=== PATIENT | female | born 1935 | race Caucasian/White ===

== ENCOUNTER → 2016-09-22 | Outpatient (CLI) | payer MEDICARE, OTHER ==
[~2016-09-22] MED LIST: AMOXICILLIN 8751 TAB PO; ASPIRIN 81M81 MG/TA2 PO; ATIVAN 0.50.5 MG/TAB PO; B-12 500 MCG PO; CALCIUM 600 PLU1 TAB PO; DESYREL 100MG100 MG PO; FLAGYL500 MG PO; FOLIC ACID 11 MG/TA1 PO; LASIX 20MG TABL20 MG PO; LEVAQUIN 5500 MG/TA1 PO; LEXAPRO 5MG5 MG PO; MAG-OX 400400 MG/TAB PO; MICARDIS80 MG PO; MULTI VITAMINS1 TAB PO; OMEGA-3 1000 MG1 CAP PO; PAXIL 20MG20 MG PO; THIAMINE 1100 MG/TAB PO; ZOCOR 20MG20 MG PO
[2016-09-22 20:34] LABS: BASO # 0.1 (0.0-0.2); GRAN # 3.4 (1.4-6.5); GRAN % 54.5 % (42.2-75.2); HEMATOCRIT 40.1 % (37.0-47.0); HEMOGLOBIN 13.6 g/dl (12.5-16.0); LYMPH # 2.2 (1.2-3.4); LYMPH % 35.5 % (20.0-51.0); MEAN CELL VOLUME 98 fl (80.0-100.0); MEAN CORPUSCULAR HEMOGLOBIN 33 pg (27.0-31.0); MEAN CORPUSCULAR HGB CONC 34 g/dl (33.0-37.0); MEAN PLATELET VOLUME 11.4 fl (7.4-10.4); MONO # 0.6 (0.1-0.6); MONO % 8.8 % (1.7-9.3); PLATELET COUNT 223 K/mm3 (130-400); RED BLOOD COUNT 4.09 M/mm3 (4.10-5.30); REDCELL DISTRIBUTION WIDTH-CV 15.9 % (11.5-14.5); WHITE BLOOD COUNT 6.3 K/mm3 (4.8-10.8)
[2016-09-22 20:54] LABS: ADJUSTED CALCIUM 9.4 mg/dL (8.4-10.2); ALBUMIN 3.7 gm/dL (3.5-5.0); BILIRUBIN,TOTAL 0.9 mg/dL (0.0-1.0); CALCIUM 9.2 mg/dL (8.4-10.2); CREATININE, serum 0.82 mg/dL (0.52-1.25); MAGNESIUM 1.8 mg/dL (1.6-2.3); POTASSIUM 4.4 mmol/L (3.4-5.0); TOTAL PROTEIN 7.2 gm/dL (6.4-8.2)
[2016-09-22 21:24] LABS: THYROID STIMULATING HORMONE 3.01 uIU/mL (0.465-4.680)
== END ==
LOC: ZCOL.LAB 18:56
PROVIDERS: Nurse Practitioner Family
DX: R63.0 Anorexia (principal); R11.2 Nausea with vomiting, unspecified; R63.4 Abnormal weight loss

== ENCOUNTER 2016-09-25 14:30 | Emergency (ER) | payer MEDICARE, OTHER ==
[~2016-09-25] VITALS: Ht 157.5 cm; Wt 56.8 kg
[~2016-09-25 14:30] MED LIST changes: -AMOXICILLIN 8751 TAB PO; -ASPIRIN 81M81 MG/TA2 PO; -CALCIUM 600 PLU1 TAB PO; -DESYREL 100MG100 MG PO; -FLAGYL500 MG PO; -LASIX 20MG TABL20 MG PO; -LEVAQUIN 5500 MG/TA1 PO; -LEXAPRO 5MG5 MG PO; -OMEGA-3 1000 MG1 CAP PO
[2016-09-25 14:42] VITALS: TEMP 98.5
[2016-09-25 18:23] LABS: BASO % 0.3 % (0.0-2.0); EOS % 0.1 % (0-4.0); GRAN # 6.3 (1.4-6.5); HEMATOCRIT 40.6 % (37.0-47.0); HEMOGLOBIN 13.8 g/dl (12.5-16.0); LYMPH # 2.3 (1.2-3.4); LYMPH % 24.8 % (20.0-51.0); MEAN CELL VOLUME 96 fl (80.0-100.0); MEAN CORPUSCULAR HEMOGLOBIN 33 pg (27.0-31.0); MEAN CORPUSCULAR HGB CONC 34 g/dl (33.0-37.0); MEAN PLATELET VOLUME 11.1 fl (7.4-10.4); MONO # 0.7 (0.1-0.6); MONO % 7.5 % (1.7-9.3); PLATELET COUNT 188 K/mm3 (130-400); RED BLOOD COUNT 4.21 M/mm3 (4.10-5.30); REDCELL DISTRIBUTION WIDTH-CV 15.7 % (11.5-14.5); WHITE BLOOD COUNT 9.5 K/mm3 (4.8-10.8)
[2016-09-25 18:35] LABS: PH 6 (5-8); SQUAMOUS EPITHELIAL 0-2 /hpf; URINE APPEARANCE Clear; URINE BACTERIA Rare /hpf; URINE BILIRUBIN Negative (NEGATIVE); URINE BLOOD Negative (NEGATIVE); URINE COLOR Yellow; URINE GLUCOSE Negative (NEGATIVE); URINE KETONE Negative (NEGATIVE); URINE RBC 0-2 /hpf; URINE UROBILINOGEN Negative (NEGATIVE); URINE WBC 0-2 /hpf
[2016-09-25 18:40] LABS: ADJUSTED CALCIUM 9.2 mg/dL (8.4-10.2); ALANINE AMINOTRANSFERASE 219 U/L (9-52); ALBUMIN 4.1 gm/dL (3.5-5.0); ALKALINE PHOSPHATASE 347 U/L (50-136); ANION GAP 18 mmol/L (7-16); BILIRUBIN,TOTAL 1.8 mg/dL (0.0-1.0); BLOOD UREA NITROGEN 10 mg/dL (7-17); CALCIUM 9.3 mg/dL (8.4-10.2); CARBON DIOXIDE 22 mmol/L (22-30); CHLORIDE 96 mmol/L (98-107); CREATININE, serum 0.71 mg/dL (0.52-1.25); GLUCOSE 109 mg/dL (74-106); POTASSIUM 4.3 mmol/L (3.4-5.0); SODIUM 136 mmol/L (137-145)
[2016-09-25 18:47] LABS: ACETAMINOPHEN < 10 ug/mL (10-30); SALICYLATE < 1.0 mg/dL
[2016-09-25 19:38] VITALS: BP 162/79; PULSE 102
== END 2016-09-25 19:48 | disposition home or self-care (01) ==
LOC: COL.ER 14:30
PROVIDERS: Emergency Medicine
DX: R53.81 Other malaise (principal); G47.00 Insomnia, unspecified; I10 Essential (primary) hypertension
CPT/HCPCS: J7040

== ENCOUNTER → 2016-09-28 | Outpatient (CLI) | payer MEDICARE, OTHER ==
[~2016-09-28] MED LIST changes: +AMOXICILLIN 8751 TAB PO; +ASPIRIN 81M81 MG/TA2 PO; +CALCIUM 600 PLU1 TAB PO; +DESYREL 100MG100 MG PO; +FLAGYL500 MG PO; +LASIX 20MG TABL20 MG PO; +LEVAQUIN 5500 MG/TA1 PO; +LEXAPRO 5MG5 MG PO; +OMEGA-3 1000 MG1 CAP PO
== END ==
LOC: COL.RAD 09:31
DX: R74.8 Abnormal levels of other serum enzymes (principal)

== ENCOUNTER 2016-11-13 10:37 | Emergency (ER) | payer MEDICARE, OTHER ==
[~2016-11-13] VITALS: Ht 157.5 cm; Wt 56.8 kg
[~2016-11-13 10:37] MED LIST changes: -AMOXICILLIN 8751 TAB PO; -ASPIRIN 81M81 MG/TA2 PO; -CALCIUM 600 PLU1 TAB PO; -DESYREL 100MG100 MG PO; -FLAGYL500 MG PO; -LASIX 20MG TABL20 MG PO; -LEVAQUIN 5500 MG/TA1 PO; -LEXAPRO 5MG5 MG PO; -OMEGA-3 1000 MG1 CAP PO
[2016-11-13 10:41] VITALS: TEMP 98.2
[2016-11-13 11:38] LABS: BASO # 0.1 (0.0-0.2); BASO % 0.4 % (0.0-2.0); EOS % 0.1 % (0-4.0); GRAN # 8.8 (1.4-6.5); GRAN % 76.5 % (42.2-75.2); HEMATOCRIT 39.6 % (37.0-47.0); HEMOGLOBIN 13.7 g/dl (12.5-16.0); LYMPH # 1.5 (1.2-3.4); LYMPH % 13.3 % (20.0-51.0); MEAN CELL VOLUME 99 fl (80.0-100.0); MEAN CORPUSCULAR HEMOGLOBIN 34 pg (27.0-31.0); MEAN CORPUSCULAR HGB CONC 35 g/dl (33.0-37.0); MEAN PLATELET VOLUME 10.9 fl (7.4-10.4); MONO # 1.1 (0.1-0.6); MONO % 9.2 % (1.7-9.3); PLATELET COUNT 171 K/mm3 (130-400); RED BLOOD COUNT 4.02 M/mm3 (4.10-5.30); REDCELL DISTRIBUTION WIDTH-CV 12.1 % (11.5-14.5); WHITE BLOOD COUNT 11.5 K/mm3 (4.8-10.8)
[2016-11-13 11:50] LABS: ADJUSTED CALCIUM 9.3 mg/dL (8.4-10.2); ALBUMIN 3.7 gm/dL (3.5-5.0); BILIRUBIN,TOTAL 1.7 mg/dL (0.0-1.0); C-REACTIVE PROTEIN 2.6 mg/dL (0.0-0.9); CALCIUM 9.1 mg/dL (8.4-10.2); CREATININE, serum 0.59 mg/dL (0.52-1.25); TOTAL PROTEIN 7.1 gm/dL (6.4-8.2)
[2016-11-13] MEDS ORDERED: AMOXICILLIN 8751 TAB PO (13:39)
[2016-11-13 14:09] VITALS: BP 117/79; PULSE 107
== END 2016-11-13 14:11 | disposition home or self-care (01) ==
LOC: COL.ER 10:37
PROVIDERS: Family Medicine
DX: J20.9 Acute bronchitis, unspecified (principal); R63.0 Anorexia; I10 Essential (primary) hypertension; F32.9 Major depressive disorder, single episode, unspecified; Z95.0 Presence of cardiac pacemaker
CPT/HCPCS: J2930; Q9967

== ENCOUNTER 2017-02-18 09:37 | Inpatient (IN) | payer MEDICARE, OTHER ==
[~2017-02-18] VITALS: Ht 157.5 cm; Wt 64.3 kg
[~2017-02-18 09:37] MED LIST changes: +AMOXICILLIN 8751 TAB PO
[2017-02-18] MEDS ORDERED: CALCIUM 600 PLU1 TAB PO (10:07)
[2017-02-18] MEDS ORDERED: MULTI VITAMINS1 TAB PO (10:08)
[2017-02-18] MEDS ORDERED: OMEGA-3 1000 MG1 CAP PO (10:08)
[2017-02-18] MEDS ORDERED: LASIX 20MG TABL20 MG PO (10:09)
[2017-02-18] MEDS ORDERED: LEXAPRO 5MG5 MG PO (10:09)
[2017-02-18] MEDS ORDERED: DESYREL 100MG100 MG PO (10:15)
[2017-02-18 10:19] LABS: BASO # 0.1 (0.0-0.2); BASO % 0.3 % (0.0-2.0); EOS # 0.1 (0.0-0.7); EOS % 0.5 % (0-4.0); GRAN # 14.1 (1.4-6.5); GRAN % 83.8 % (42.2-75.2); HEMATOCRIT 38.1 % (37.0-47.0); HEMOGLOBIN 12.7 g/dl (12.5-16.0); LYMPH % 6.1 % (20.0-51.0); MEAN CELL VOLUME 95 fl (80.0-100.0); MEAN CORPUSCULAR HEMOGLOBIN 32 pg (27.0-31.0); MEAN CORPUSCULAR HGB CONC 33 g/dl (33.0-37.0); MEAN PLATELET VOLUME 9.7 fl (7.4-10.4); MONO # 1.4 (0.1-0.6); MONO % 8.6 % (1.7-9.3); PLATELET COUNT 237 K/mm3 (130-400); REDCELL DISTRIBUTION WIDTH-CV 11.7 % (11.5-14.5); WHITE BLOOD COUNT 16.8 K/mm3 (4.8-10.8)
[2017-02-18 10:32] LABS: ADJUSTED CALCIUM 9.1 mg/dL (8.4-10.2); ALBUMIN 3.4 gm/dL (3.5-5.0); BILIRUBIN,TOTAL 0.6 mg/dL (0.0-1.0); CALCIUM 8.6 mg/dL (8.4-10.2); CREATININE, serum 0.84 mg/dL (0.52-1.25); POTASSIUM 3.6 mmol/L (3.4-5.0); TOTAL PROTEIN 6.6 gm/dL (6.4-8.2)
[2017-02-18 11:05] LABS: C-REACTIVE PROTEIN 29.4 mg/dL (0.0-0.9)
[2017-02-18 11:21] LABS: PH 6 (5-8); SQUAMOUS EPITHELIAL 0-2 /hpf; URINE APPEARANCE Clear; URINE BACTERIA None Seen /hpf; URINE BILIRUBIN Negative (NEGATIVE); URINE BLOOD Negative (NEGATIVE); URINE COLOR Yellow; URINE GLUCOSE 1+ (NEGATIVE); URINE KETONE Negative (NEGATIVE); URINE RBC 0-2 /hpf; URINE UROBILINOGEN Negative (NEGATIVE); URINE WBC 0-2 /hpf
[2017-02-18] MEDS ORDERED: ASPIRIN 81M81 MG/TA2 PO (11:51)
[2017-02-18 12:23] VITALS: BP 125/51; PULSE 91; TEMP 98.3
[2017-02-18 14:46] VITALS: BP 140/47; PULSE 86; TEMP 98.2
[2017-02-18 17:55] VITALS: BP 116/45; PULSE 87; TEMP 98.3
[2017-02-18 21:36] VITALS: BP 131/46; PULSE 81; TEMP 98.1
[2017-02-19 01:19] VITALS: BP 111/48; PULSE 73; TEMP 98.3
[2017-02-19 05:23] VITALS: BP 124/47; PULSE 70; TEMP 97.9
[2017-02-19 06:06] LABS: BASO % 0.3 % (0.0-2.0); EOS # 0.2 (0.0-0.7); GRAN # 8.3 (1.4-6.5); GRAN % 71.6 % (42.2-75.2); HEMATOCRIT 34.3 % (37.0-47.0); HEMOGLOBIN 11.2 g/dl (12.5-16.0); LYMPH # 1.8 (1.2-3.4); LYMPH % 15.7 % (20.0-51.0); MEAN CELL VOLUME 97 fl (80.0-100.0); MEAN CORPUSCULAR HEMOGLOBIN 32 pg (27.0-31.0); MEAN CORPUSCULAR HGB CONC 33 g/dl (33.0-37.0); MEAN PLATELET VOLUME 9.4 fl (7.4-10.4); MONO # 1.2 (0.1-0.6); MONO % 9.9 % (1.7-9.3); PLATELET COUNT 230 K/mm3 (130-400); RED BLOOD COUNT 3.53 M/mm3 (4.10-5.30); REDCELL DISTRIBUTION WIDTH-CV 11.9 % (11.5-14.5); WHITE BLOOD COUNT 11.6 K/mm3 (4.8-10.8)
[2017-02-19 06:17] LABS: CALCIUM 7.8 mg/dL (8.4-10.2); CREATININE, serum 0.65 mg/dL (0.52-1.25); POTASSIUM 3.5 mmol/L (3.4-5.0)
[2017-02-19 07:45] VITALS: BP 134/57; PULSE 74; TEMP 97.6
[2017-02-19 12:10] VITALS: BP 152/57; PULSE 84; TEMP 98.3
[2017-02-19 16:30] VITALS: BP 122/55; PULSE 73; TEMP 98.2
[2017-02-19 21:21] VITALS: BP 142/55; PULSE 71; TEMP 98.1
[2017-02-20 04:55] VITALS: BP 136/66; PULSE 76; TEMP 97.9
[2017-02-20 06:04] VITALS: BP 146/58; PULSE 65; TEMP 98.2
[2017-02-20 07:26] LABS: BASO % 0.3 % (0.0-2.0); EOS # 0.1 (0.0-0.7); EOS % 1.4 % (0-4.0); GRAN # 6.1 (1.4-6.5); GRAN % 67.7 % (42.2-75.2); LYMPH # 1.8 (1.2-3.4); MEAN CELL VOLUME 96 fl (80.0-100.0); MEAN CORPUSCULAR HGB CONC 32 g/dl (33.0-37.0); MEAN PLATELET VOLUME 9.1 fl (7.4-10.4); MONO # 0.9 (0.1-0.6); PLATELET COUNT 259 K/mm3 (130-400); REDCELL DISTRIBUTION WIDTH-CV 11.9 % (11.5-14.5)
[2017-02-20 07:27] LABS: HEMATOCRIT 33.7 % (37.0-47.0); HEMOGLOBIN 10.9 g/dl (12.5-16.0); MEAN CORPUSCULAR HEMOGLOBIN 31 pg (27.0-31.0)
[2017-02-20 07:38] LABS: CALCIUM 7.9 mg/dL (8.4-10.2); CREATININE, serum 0.6 mg/dL (0.52-1.25); POTASSIUM 3.4 mmol/L (3.4-5.0)
[2017-02-20 09:30] VITALS: BP 155/61; PULSE 60; TEMP 98.1
[2017-02-20 13:55] VITALS: BP 136/63; PULSE 67; TEMP 99.1
[2017-02-20 18:00] VITALS: BP 146/64; PULSE 64; TEMP 98.1
[2017-02-20 22:51] VITALS: BP 141/63; PULSE 78; TEMP 98.7
[2017-02-21 05:29] VITALS: BP 157/66; PULSE 71; TEMP 98.6
[2017-02-21 09:52] VITALS: BP 157/63; PULSE 67; TEMP 98.2
[2017-02-21] MEDS ORDERED: LEVAQUIN 5500 MG/TA1 PO (13:06)
[2017-02-21] MEDS ORDERED: FLAGYL500 MG PO (13:07)
[2017-02-21 13:22] VITALS: BP 164/66; PULSE 76; TEMP 98.1
== END 2017-02-21 13:40 | disposition home or self-care (01) | DRG 392 ==
LOC: COL.ER 09:37 → SURG 11:38
PROVIDERS: Emergency Medicine; Family Medicine
DX: K57.20 Diverticulitis of large intestine with perforation and abscess without bleeding (principal); I10 Essential (primary) hypertension; E78.5 Hyperlipidemia, unspecified; G47.00 Insomnia, unspecified; F32.9 Major depressive disorder, single episode, unspecified; Z87.891 Personal history of nicotine dependence
CPT/HCPCS: 99222-AI; 99232-AI; 99239; J2543; J7030; J7040; J7050; Q9967

== ENCOUNTER 2018-03-24 15:33 | Observation (INO) | payer MEDICARE, OTHER ==
[~2018-03-24] VITALS: Ht 154.9 cm; Wt 61.2 kg
[~2018-03-24 15:33] MED LIST changes: +ASPIRIN 81M81 MG/TA2 PO; +CALCIUM 600 PLU1 TAB PO; +CEFTIN 250250 MG/TAB PO; +CIPRO 500MG TA500 MG PO; +DESYREL 100MG100 MG PO; +DIPHEDRYL12.5 MG/4; +FLAGYL500 MG PO; +LASIX 20MG TABL20 MG PO; +LEVAQUIN 5500 MG/TA1 PO; +LEXAPRO 5MG5 MG PO; +NATURAL MAGNES200 MG PO; +NORCO 325 MG-51 TAB PO; +OMEGA-3 1000 MG1 CAP PO; +VITAMIN B COMPL1 SGL PO
[2018-03-24 15:56] VITALS: BP 174/78; PULSE 79
[2018-03-24 16:15] LABS: BASO % 0.3 % (0.0-2.0); GRAN # 10.2 (1.4-6.5); GRAN % 82.8 % (42.2-75.2); HEMATOCRIT 38.9 % (37.0-47.0); HEMOGLOBIN 13.3 g/dl (12.5-16.0); LYMPH # 1.5 (1.2-3.4); LYMPH % 12.5 % (20.0-51.0); MEAN CELL VOLUME 93 fl (80.0-100.0); MEAN CORPUSCULAR HEMOGLOBIN 32 pg (27.0-31.0); MEAN CORPUSCULAR HGB CONC 34 g/dl (33.0-37.0); MEAN PLATELET VOLUME 9.5 fl (7.4-10.4); MONO # 0.5 (0.1-0.6); MONO % 4.1 % (1.7-9.3); PLATELET COUNT 205 K/mm3 (130-400); RED BLOOD COUNT 4.17 M/mm3 (4.10-5.30); REDCELL DISTRIBUTION WIDTH-CV 12.5 % (11.5-14.5)
[2018-03-24 16:29] LABS: ALANINE AMINOTRANSFERASE 72 U/L (9-52); ALBUMIN 3.8 gm/dL (3.5-5.0); ALKALINE PHOSPHATASE 175 U/L (50-136); ANION GAP 14 mmol/L (7-16); AST,SGOT 183 U/L (15-37); BILIRUBIN,TOTAL 0.4 mg/dL (0.0-1.0); BLOOD UREA NITROGEN 14 mg/dL (7-17); CARBON DIOXIDE 21 mmol/L (22-30); CHLORIDE 96 mmol/L (98-107); CREATININE, serum 0.61 mg/dL (0.52-1.25); GLUCOSE 141 mg/dL (74-106); SODIUM 131 mmol/L (137-145); TOTAL PROTEIN 7.5 gm/dL (6.4-8.2)
[2018-03-24 16:31] LABS: C-REACTIVE PROTEIN < 0.5 mg/dL (0.0-0.9)
[2018-03-24 16:38] LABS: TROPONIN-I < 0.012 ng/mL (0.000-0.034)
[2018-03-24 17:34] LABS: COLLECTION METHOD CLEAN CATCH
[2018-03-24 17:53] LABS: HYALINE CAST >12 /lpf; MUCOUS Present /lpf; PH 5 (5-8); SQUAMOUS EPITHELIAL 0-2 /hpf; URINE APPEARANCE Clear; URINE BACTERIA Rare /hpf; URINE BILIRUBIN Negative (NEGATIVE); URINE BLOOD Negative (NEGATIVE); URINE COLOR Yellow; URINE GLUCOSE 1+ (NEGATIVE); URINE KETONE 1+ (NEGATIVE); URINE LEUKOCYTE ESTERASE Negative (NEGATIVE); URINE NITRATE Negative (NEGATIVE); URINE PROTEIN(semi-quant) 1+ (NEGATIVE); URINE RBC 0-2 /hpf; URINE UROBILINOGEN Negative (NEGATIVE)
[2018-03-24] MEDS ORDERED: REMERON 15M15 MG/TA1 PO (21:52)
[2018-03-24 23:31] VITALS: BP 159/61; PULSE 86; TEMP 98.1
[2018-03-25 03:38] VITALS: BP 165/63; PULSE 81; TEMP 98.5
[2018-03-25 07:25] LABS: BASO % 0.4 % (0.0-2.0); EOS % 0.3 % (0-4.0); GRAN # 3.3 (1.4-6.5); GRAN % 44.8 % (42.2-75.2); LYMPH # 3.3 (1.2-3.4); LYMPH % 44.8 % (20.0-51.0); MEAN CELL VOLUME 96 fl (80.0-100.0); MEAN CORPUSCULAR HGB CONC 32 g/dl (33.0-37.0); MEAN PLATELET VOLUME 10.3 fl (7.4-10.4); MONO # 0.7 (0.1-0.6); MONO % 9.6 % (1.7-9.3); PLATELET COUNT 168 K/mm3 (130-400); RED BLOOD COUNT 3.41 M/mm3 (4.10-5.30); REDCELL DISTRIBUTION WIDTH-CV 12.7 % (11.5-14.5)
[2018-03-25 07:27] LABS: HEMATOCRIT 32.8 % (37.0-47.0); HEMOGLOBIN 10.6 g/dl (12.5-16.0); MEAN CORPUSCULAR HEMOGLOBIN 31 pg (27.0-31.0)
[2018-03-25 07:35] VITALS: BP 152/54; PULSE 79; TEMP 98.1
[2018-03-25 07:41] LABS: BILIRUBIN,TOTAL 0.7 mg/dL (0.0-1.0); CALCIUM 7.2 mg/dL (8.4-10.2); CREATININE, serum 0.65 mg/dL (0.52-1.25); POTASSIUM 3.3 mmol/L (3.4-5.0); TOTAL PROTEIN 6.1 gm/dL (6.4-8.2)
== END 2018-03-25 12:00 | disposition home or self-care (01) ==
LOC: COL.ER 15:33 → MEDICAL 18:31
PROVIDERS: Emergency Medicine; Nurse Practitioner
DX: E86.0 Dehydration (principal); K52.9 Noninfective gastroenteritis and colitis, unspecified; R53.81 Other malaise; I10 Essential (primary) hypertension; E78.5 Hyperlipidemia, unspecified; G47.00 Insomnia, unspecified; R74.0 Nonspecific elevation of levels of transaminase and lactic acid dehydrogenase [LDH]; F32.9 Major depressive disorder, single episode, unspecified; F10.20 Alcohol dependence, uncomplicated; Z90.710 Acquired absence of both cervix and uterus; Z95.0 Presence of cardiac pacemaker; Z79.82 Long term (current) use of aspirin; Z87.891 Personal history of nicotine dependence; Z82.49 Family history of ischemic heart disease and other diseases of the circulatory system
CPT/HCPCS: C9113; J0696; J1644; J2060; J2543; J7030

== ENCOUNTER 2018-09-17 01:56 | Emergency (ER) | payer MEDICARE, OTHER | END 2018-09-17 04:41 | disposition home or self-care (01) | LOC: COL.ER 01:56 | DX: R19.7 Diarrhea, unspecified (principal); R11.10 Vomiting, unspecified; I10 Essential (primary) hypertension; E86.9 Volume depletion, unspecified ==

== ENCOUNTER 2021-04-10 10:10 | Emergency (ER) | payer MEDICARE, OTHER ==
[~2021-04-10] VITALS: Ht 154.9 cm; Wt 59.1 kg
[~2021-04-10 10:10] MED LIST changes: +REMERON 15M15 MG/TA1 PO; +ZOFRAN ODT4 MG PO
[2021-04-10 10:18] VITALS: TEMP 97.2
[2021-04-10] MEDS ORDERED: HYDROCORTISON28.4 GM TP (10:42)
[2021-04-10 11:20] VITALS: BP 130/66; PULSE 70
== END 2021-04-10 11:21 | disposition home or self-care (01) ==
LOC: COL.ER 10:10
DX: R21 Rash and other nonspecific skin eruption (principal); I10 Essential (primary) hypertension; E78.5 Hyperlipidemia, unspecified; Z87.891 Personal history of nicotine dependence; Z79.899 Other long term (current) drug therapy

== ENCOUNTER 2021-07-14 12:39 | Emergency (ER) | payer MEDICARE, OTHER ==
[~2021-07-14] VITALS: Ht 154.9 cm; Wt 61.8 kg
[~2021-07-14 12:39] MED LIST changes: +HYDROCORTISON28.4 GM TP; +LASIX 40MG TABL40 MG PO; +LOPRESSOR 225 MG/TAB PO; +PROAIR HFA0.09 MG/AC IH; +RT ADVAIR 228 DISKUS IH; +TWYNSTA PO; +ZOLOFT 50MG50 MG PO
[2021-07-14 12:41] VITALS: TEMP 97.3
[2021-07-14 13:10] LABS: BASO # 0.1 K/mm3 (0.0-0.2); BASO % 0.5 % (0.0-2.0); EOS % 0.1 % (0.0-4.0); GRAN # 10.1 K/mm3 (1.4-6.5); GRAN % 80.1 % (42.2-75.2); LYMPH # 1.4 K/mm3 (1.2-3.4); LYMPH % 11.3 % (20.0-51.0); MEAN CELL VOLUME 94 fl (80.0-100.0); MEAN CORPUSCULAR HEMOGLOBIN 31 pg (27-31); MEAN CORPUSCULAR HGB CONC 33 g/dl (33.0-37.0); MEAN PLATELET VOLUME 9.7 fl (7.4-10.4); MONO # 0.9 K/mm3 (0.1-0.6); MONO % 7.4 % (1.7-9.3); PLATELET COUNT 271 K/mm3 (130-400); RED BLOOD COUNT 3.58 M/mm3 (4.10-5.30); REDCELL DISTRIBUTION WIDTH-CV 12.9 % (11.5-14.5)
[2021-07-14 13:12] LABS: HEMATOCRIT 33.6 % (37.0-47.0)
[2021-07-14 13:31] LABS: ALANINE AMINOTRANSFERASE 20 U/L (0-55); ALBUMIN 3.9 gm/dL (3.4-4.8); ALKALINE PHOSPHATASE 114 U/L (40-150); ANION GAP 13 mmol/L (7-16); AST,SGOT 33 U/L (5-34); BILIRUBIN,TOTAL 0.9 mg/dL (0.2-1.2); BLOOD UREA NITROGEN 23 mg/dL (10-20); CALCIUM 9.2 mg/dL (8.4-10.2); CARBON DIOXIDE 25 mmol/L (23-31); CHLORIDE 102 mmol/L (98-107); CREATININE, serum 0.86 mg/dL (0.57-1.11); GLUCOSE 132 mg/dL (70-99); SODIUM 140 mmol/L (136-145); TOTAL PROTEIN 7.6 gm/dL (6.2-8.1)
[2021-07-14 13:38] LABS: TROPONIN-I < 0.010 ng/mL (0.00-0.033)
[2021-07-14 16:29] VITALS: BP 130/65; PULSE 72
[2021-07-14 17:57] LABS: ARTERIAL BLD GAS O2 SATURATION 95.6 % (92-100); ARTERIAL BLD GAS TCO2 CT 30.5; ARTERIAL BLOOD GAS BASE EXCESS 4.8 (-2-2); ARTERIAL BLOOD GAS HCO3 29.2 meq/L (22-26); ARTERIAL BLOOD GAS PCO2 42.6 mmHg (35-45); ARTERIAL BLOOD GAS PO2 75.7 mmHg (80-100); ARTERIAL BLOOD GAS pH 7.45 (7.35-7.45)
== END 2021-07-14 16:30 | disposition home or self-care (01) ==
LOC: COL.ER 12:39
PROVIDERS: Nurse Practitioner Primary Care
DX: I11.0 Hypertensive heart disease with heart failure (principal); I50.9 Heart failure, unspecified; E78.5 Hyperlipidemia, unspecified; F32.A Depression, unspecified; Z99.81 Dependence on supplemental oxygen; Z95.0 Presence of cardiac pacemaker; Z87.891 Personal history of nicotine dependence; Z79.899 Other long term (current) drug therapy

== ENCOUNTER 2021-08-03 12:00 | Emergency (ER) | payer MEDICARE, OTHER ==
[~2021-08-03] VITALS: Ht 154.9 cm; Wt 63.6 kg
[2021-08-03 12:37] VITALS: TEMP 98.5
[2021-08-03 13:33] LABS: BASO # 0.1 K/mm3 (0.0-0.2); BASO % 0.7 % (0.0-2.0); EOS % 0.3 % (0.0-4.0); GRAN # 7.5 K/mm3 (1.4-6.5); GRAN % 70.9 % (42.2-75.2); MEAN CELL VOLUME 98 fl (80.0-100.0); MEAN CORPUSCULAR HGB CONC 32 g/dl (33.0-37.0); MEAN PLATELET VOLUME 9.1 fl (7.4-10.4); MONO # 0.9 K/mm3 (0.1-0.6); MONO % 8.5 % (1.7-9.3); PLATELET COUNT 315 K/mm3 (130-400); RED BLOOD COUNT 2.81 M/mm3 (4.10-5.30); REDCELL DISTRIBUTION WIDTH-CV 14.1 % (11.5-14.5)
[2021-08-03 13:34] LABS: HEMATOCRIT 27.5 % (37.0-47.0); HEMOGLOBIN 8.7 g/dl (12.5-16.0); MEAN CORPUSCULAR HEMOGLOBIN 31 pg (27-31)
[2021-08-03 13:58] LABS: ALBUMIN 3.6 gm/dL (3.4-4.8); BILIRUBIN,TOTAL 0.4 mg/dL (0.2-1.2); CALCIUM 8.5 mg/dL (8.4-10.2); CREATININE, serum 0.86 mg/dL (0.57-1.11); POTASSIUM 5.1 mmol/L (3.5-4.5); TOTAL PROTEIN 7.3 gm/dL (6.2-8.1)
[2021-08-03 14:04] LABS: TROPONIN-I 0.014 ng/mL (0.00-0.033)
[2021-08-03] MEDS ORDERED: ATIVAN 0.50.5 MG/TAB PO (17:01)
[2021-08-03 17:30] VITALS: BP 149/61; PULSE 88
== END 2021-08-03 17:34 | disposition home or self-care (01) ==
LOC: COL.ER 12:00
PROVIDERS: Nurse Practitioner
DX: R06.02 Shortness of breath (principal); F41.9 Anxiety disorder, unspecified; I11.0 Hypertensive heart disease with heart failure; I50.9 Heart failure, unspecified; E78.5 Hyperlipidemia, unspecified; Z20.822 Contact with and (suspected) exposure to COVID-19; Z79.899 Other long term (current) drug therapy; Z79.82 Long term (current) use of aspirin
CPT/HCPCS: J2060

== ENCOUNTER 2021-08-19 15:04 | Emergency (ER) | payer MEDICARE, OTHER ==
[~2021-08-19] VITALS: Ht 154.9 cm; Wt 63.6 kg
[2021-08-19 15:46] LABS: BASO % 0.3 % (0.0-2.0); EOS % 0.1 % (0.0-4.0); GRAN # 9.7 K/mm3 (1.4-6.5); GRAN % 86.2 % (42.2-75.2); LYMPH # 0.7 K/mm3 (1.2-3.4); LYMPH % 6.4 % (20.0-51.0); MEAN CELL VOLUME 93 fl (80.0-100.0); MEAN CORPUSCULAR HGB CONC 33 g/dl (33.0-37.0); MEAN PLATELET VOLUME 9.8 fl (7.4-10.4); MONO # 0.7 K/mm3 (0.1-0.6); MONO % 6.4 % (1.7-9.3); PLATELET COUNT 245 K/mm3 (130-400); RED BLOOD COUNT 3.21 M/mm3 (4.10-5.30)
[2021-08-19 15:48] LABS: HEMATOCRIT 29.9 % (37.0-47.0); HEMOGLOBIN 9.8 g/dl (12.5-16.0); MEAN CORPUSCULAR HEMOGLOBIN 31 pg (27-31)
[2021-08-19 16:08] LABS: ALBUMIN 4.1 gm/dL (3.4-4.8); BILIRUBIN,TOTAL 0.7 mg/dL (0.2-1.2); C-REACTIVE PROTEIN 0.52 mg/dL (0.00-0.50); CALCIUM 9.4 mg/dL (8.4-10.2); CREATININE, serum 0.92 mg/dL (0.57-1.11); TOTAL PROTEIN 8.1 gm/dL (6.2-8.1)
[2021-08-19 17:37] VITALS: BP 146/74; PULSE 86
== END 2021-08-19 18:00 | disposition home or self-care (01) ==
LOC: COL.ER 15:04
PROVIDERS: Nurse Practitioner Primary Care
DX: K74.60 Unspecified cirrhosis of liver (principal); I11.0 Hypertensive heart disease with heart failure; I50.9 Heart failure, unspecified; E78.5 Hyperlipidemia, unspecified; J44.9 Chronic obstructive pulmonary disease, unspecified; Z99.81 Dependence on supplemental oxygen; Z87.891 Personal history of nicotine dependence; Z79.82 Long term (current) use of aspirin; Z79.899 Other long term (current) drug therapy
CPT/HCPCS: J1885; J7030; Q9967

== ENCOUNTER 2021-08-21 08:02 | Inpatient (IN) | payer MEDICARE, OTHER ==
[~2021-08-21] VITALS: Ht 155 cm; Wt 68.1 kg
[2021-08-21] VITALS (9 sets, daily range): BP systolic 128–153; BP diastolic 50–75; PULSE 75–85; TEMP 97.8–99
[2021-08-21 09:20] LABS: MEAN CELL VOLUME 93 fl (80.0-100.0); MEAN CORPUSCULAR HEMOGLOBIN 30 pg (27-31); MEAN CORPUSCULAR HGB CONC 33 g/dl (33.0-37.0); MEAN PLATELET VOLUME 9.6 fl (7.4-10.4); PLATELET COUNT 198 K/mm3 (130-400); REDCELL DISTRIBUTION WIDTH-CV 13.2 % (11.5-14.5)
[2021-08-21 09:25] LABS: HEMATOCRIT 30.8 % (37.0-47.0)
[2021-08-21 09:36] LABS: CALCIUM 9.2 mg/dL (8.4-10.2); CREATININE, serum 0.95 mg/dL (0.57-1.11); POTASSIUM 3.2 mmol/L (3.5-4.5)
[2021-08-21 09:44] LABS: INR 1.1 (0.8-3.0); PROTHROMBIN TIME 12.1 SECONDS (9.7-12.8)
[2021-08-21] MEDS ORDERED: INCRUSE EL62.5 MCG/A IH (10:27)
[2021-08-21] MEDS ORDERED: PRIL40 PO (10:28)
[2021-08-21] MEDS ORDERED: LOPRESSOR 225 MG/TAB PO (10:30)
--- NOTE | 2021-08-21 11:07 | NUR ---
SEE MERGE FOR ALL MEDICATION ADMINISTRATION TIMES/DOSAGES AND INTRA/POST PROCEDURE SEDATION ASSESSMENTS.
[2021-08-21 14:16] LABS: ALBUMIN 3.6 gm/dL (3.4-4.8); BILIRUBIN,TOTAL 0.9 mg/dL (0.2-1.2); MAGNESIUM 1.7 mg/dL (1.6-2.6); TOTAL PROTEIN 7.2 gm/dL (6.2-8.1)
[2021-08-21 14:27] LABS: BILIRUBIN,DIRECT 0.5 mg/dL (0.0-0.5)
--- NOTE | 2021-08-21 14:33 | NUR ---
CT notified of ordered CT w/ PE Protocol
[2021-08-21 16:56] LABS: COLLECTION METHOD CLEAN CATCH
--- NOTE | 2021-08-21 16:59 | NUR ---
Pt experiencing "anxiety attack", with dizziness and restlessness. MD Orestes and CLYDE Brock notified and at bedside right away. At the time of provider notification vitals were noted to be within normal limits, however pt's LOC was decreased from last time I was in pt room 10min prior - pt was unable to keep eyes open, and pt following commands but response is delayed. Team talked with pt for 10-15min, pt was able to return to pleasant/oriented self with no further complaints. Pt agreeable to PO ativan
[2021-08-21 17:04] LABS: PH 7 (5-8); SQUAMOUS EPITHELIAL 0-2 /hpf (0-10); URINE APPEARANCE Clear (CLEAR/HAZY); URINE BACTERIA None Seen /hpf (NONE SEEN); URINE BILIRUBIN Negative (NEGATIVE); URINE BLOOD Negative (NEGATIVE); URINE COLOR Yellow (YELLOW); URINE GLUCOSE Negative (NEGATIVE); URINE KETONE Negative (NEGATIVE); URINE LEUKOCYTE ESTERASE Trace (NEGATIVE); URINE NITRATE Negative (NEGATIVE); URINE PROTEIN(semi-quant) Negative (NEGATIVE); URINE RBC 0-2 /hpf (0-2); URINE UROBILINOGEN Negative (NEGATIVE)
[2021-08-22] VITALS (7 sets, daily range): BP systolic 115–165; BP diastolic 40–84; PULSE 65–88; TEMP 97.5–98.5
--- NOTE | 2021-08-22 01:28 | NUR ---
PATIENT DOING WELL THIS EVENING. ALERT AND ORIENTED. ASSESSMENT COMPLETED. AMBULATED TO BATHROOM X2 WITH USE OF WALKER AND HAD 1 LARGE LOOSE BROWN BM, WHICH ATTEMPTED COLLECTION OF GI PANEL BUT WAS MIXED WITH URINE. INT L FA PATENT AND FLUSHES EASILY. 4 L O2 VIA NC. REQUESTED SLEEPING MEDICINE AND PRN TYLENOL + BENADRYL ORDERED AND GIVEN. PATIENT RESTING COMFORTABLY IN BED NOW. CALL LIGHT WITHIN REACH.
[2021-08-22 08:59] LABS: BASO % 0.1 % (0.0-2.0); GRAN # 7.6 K/mm3 (1.4-6.5); GRAN % 86.3 % (42.2-75.2); LYMPH # 0.9 K/mm3 (1.2-3.4); LYMPH % 10.7 % (20.0-51.0); MEAN CELL VOLUME 96 fl (80.0-100.0); MEAN CORPUSCULAR HGB CONC 32 g/dl (33.0-37.0); MEAN PLATELET VOLUME 10.1 fl (7.4-10.4); MONO # 0.2 K/mm3 (0.1-0.6); PLATELET COUNT 199 K/mm3 (130-400)
--- NOTE | 2021-08-22 09:00 | NUR ---
PT ALERT AND ORIENTED. PT EATING BREAKFAST. ASSESSMENT COMPLETED AND MEDICATIONS ADMINISTERED PER ORDERS. PT HAS DISTENDEND ABDOMEN, SOFT, ACTIVE BOWEL SOUNDS. EXPIRATORY WHEEZES NOTED IN RIGHT MIDDLE LOBE, LEFT LOWER LOBE. PT HAS CLEAR UPPER LOBES. PT EXPRESSES WISHES TO BE OUT OF HOSPITAL, STATES "I'M TIRE OF ALL THIS." THERAPEUTIC COMMUNICATION UTILIZED. PT CALL LIGHT WITHIN REACH.
[2021-08-22 09:03] LABS: HEMATOCRIT 30.6 % (37.0-47.0); HEMOGLOBIN 9.7 g/dl (12.5-16.0); MEAN CORPUSCULAR HEMOGLOBIN 30 pg (27-31)
[2021-08-22 09:29] LABS: ALBUMIN 3.4 gm/dL (3.4-4.8); BILIRUBIN,TOTAL 0.4 mg/dL (0.2-1.2); CALCIUM 8.8 mg/dL (8.4-10.2); CREATININE, serum 1.15 mg/dL (0.57-1.11); POTASSIUM 3.8 mmol/L (3.5-4.5)
--- NOTE | 2021-08-22 11:52 | NUR ---
SW met with patient to complete intake. Patient states that she lives at [facility] independent living. Her point of contact is her [facility]-/apolinar Mello Harrisonerson [phone] or [phone]. Patient states that she hasn't utilized a walker until recently, and is independent with ADL's. Patient also states that she utilizes [facility] Home health services. Patient states that her PCP is Dr. Eldridge and obtains medications from [facility] or [facility]. Patient provides that her plan is to return to [facility] upon DC. SW will continue to follow. DC plan: [facility] lives in independent living
--- NOTE | 2021-08-22 13:12 | NUR ---
Control Integration Engineer visited with patient. Nothing else needed at this time.
--- NOTE | 2021-08-22 14:08 | NUR ---
PT CALLED OUT STATING SHE FELT SHORT OF AIR, CHARGE NURSE RECHECKED SPO2 AT THIS TIME, 95%.
--- NOTE | 2021-08-22 15:42 | NUR ---
PT BLOOD PRESSURE LOW, RECHECKED AFTER ABMULATION IN HALLWAYS 131/50. PT DENIES BEING DIZZY, STATES MILD LIGHT HEADED FEELING SINCE "THAT'S THE MOST I HAVE WALKED IN THE PAST 4 DAYS."
--- NOTE | 2021-08-22 18:15 | NUR ---
PT CONTINUES ON PLAN OF CARE. PT ABLE TO CALL FOR NEEDS, SBA TO BATHROOM PRIVILEGES. PT PLEASANT, NO PAIN THIS SHIFT. LOW DBP NOTED DURING 1600 VS WILL PASS ON TO SENIOR ETL DEVELOPER. PT FREE FROM INJURY THIS SHIFT, CALL LIGHT WITHIN REACH.
--- NOTE | 2021-08-22 23:50 | NUR ---
MIDNIGHT VITAL SIGNS NOT CHECKED PER PT REQUEST/INSISTENCE.
--- NOTE | 2021-08-23 04:51 | NUR ---
RESTING QUIETLY/SLEEPING MOST OF NIGHT. AFEBRILE. NO c/o DYSPNEA. NO c/o N/V.
[2021-08-23 05:13] VITALS: BP 135/51; PULSE 81; TEMP 97.8
[2021-08-23 06:30] LABS: BASO % 0.1 % (0.0-2.0); GRAN % 89.3 % (42.2-75.2); LYMPH # 0.8 K/mm3 (1.2-3.4); LYMPH % 5.6 % (20.0-51.0); MEAN CELL VOLUME 93 fl (80.0-100.0); MEAN CORPUSCULAR HGB CONC 33 g/dl (33.0-37.0); MEAN PLATELET VOLUME 10.1 fl (7.4-10.4); MONO # 0.6 K/mm3 (0.1-0.6); MONO % 4.4 % (1.7-9.3); PLATELET COUNT 205 K/mm3 (130-400); REDCELL DISTRIBUTION WIDTH-CV 13.2 % (11.5-14.5)
[2021-08-23 06:35] LABS: HEMATOCRIT 26.1 % (37.0-47.0); HEMOGLOBIN 8.5 g/dl (12.5-16.0); MEAN CORPUSCULAR HEMOGLOBIN 30 pg (27-31)
[2021-08-23 06:46] LABS: CALCIUM 8.5 mg/dL (8.4-10.2); CREATININE, serum 1.48 mg/dL (0.57-1.11); POTASSIUM 3.7 mmol/L (3.5-4.5)
[2021-08-23 07:50] VITALS: BP 135/44; PULSE 88; TEMP 98.2
--- NOTE | 2021-08-23 10:49 | NUR ---
Pt just recently up walking in the halls with PCT. Pt now up walking in the clark with PT. Pt not having any pain complaints at this time. O2 is 94% on room air
[2021-08-23 11:42] VITALS: BP 130/48; PULSE 68; TEMP 98.9
[2021-08-23 16:00] VITALS: BP 133/66; PULSE 84; TEMP 98.9
--- NOTE | 2021-08-23 17:14 | NUR ---
pt has continued to do well throughout the day. No pain complaints and she has been up ambulating often. Dressing was removed from incision. Gauze was stuck to incision. Used saline to loosen gauze. Small area on incision started bleeding once gauze removed. Applied telfa and gauze and taped with metapor tape. Pt has already eaten and stated that she would most likely just want a snack later
[2021-08-23 19:30] VITALS: BP 131/51; PULSE 84; TEMP 97.8
--- NOTE | 2021-08-24 00:15 | NUR ---
DRESSING TO PACER INCISION CHANGED AGAIN. DRAINAGE APPEARS TO BE MOSTLY SEROUS.
--- NOTE | 2021-08-24 00:17 | NUR ---
PT REQUESTED SHE NOT BE BOTHERED AT MIDNIGHT FOR VITAL SIGNS.
[2021-08-24 04:42] VITALS: BP 147/56; PULSE 70; TEMP 97.9
[2021-08-24] MEDS ORDERED: CEPHALEXIN500 M1 PO (07:55)
[2021-08-24 07:59] VITALS: BP 132/40; PULSE 69; TEMP 97.5
--- NOTE | 2021-08-24 08:00 | NUR ---
PATIENT IS A&O AND AMBULATING AROUND ROOM INDEPENDENTLY. PATIENT FOUND TO HAVE TAKEN O2 OFF HER CORD DIDN'T REACH TO HER CLOSET. O2 SATS DROP INTO UPPER 80'S. PATIENT REMINDED ABOUT THE IMPORTANCE OF WEARING HER 02 AT ALL TIMES. O2 @ 2L PER NC TO KEEP SATS IN LOW 90'S. CXR ORDERED TODAY, DEPENDING ON RESULTS MAY REQUIRED THORO. HEPARIN HELD THIS AM. VSS ON TELE, V-PACED. NOTED LEFT CHEST INCISION DRESSING IS SATURATED THROUGH THE PRESSURE DRESSING, GOWN AND ONTO HER BED SHEETS. PATIENT CLEAN UP AND INCISION INSPECTED. NOTED OPENING TO INCISION UNDER WHAT APPEARS TO BE A SKIN TEAR ACCROSS THE INCISION. CARDS CALLED AND WILL COME ASSESS. APPLIED NEW PRESSURE DRESSING, CLEAN GOWN & LINEN. HEAD TO TOE ASSESSMENT COMPLETE. BREAKFAST TRAY ORDERED. AM MEDS GIVEN. LEFT FORARM IV TO INT. NO OTHER NEEDS AT THIS TIME.
[2021-08-24 08:14] LABS: CALCIUM 8.6 mg/dL (8.4-10.2); CREATININE, serum 1.42 mg/dL (0.57-1.11); POTASSIUM 3.9 mmol/L (3.5-4.5)
--- NOTE | 2021-08-24 10:45 | NUR ---
CARDS AT BEDSIDE, EVALUATED INCISION AND APPLIED NEW PRESSURE DRESSING. EXTERIOR DESIGNER STAFF TO COME UP AND APPLY ADDITIONAL SUGICAL GLUE TO INCISION. WILL MONITOR.
[2021-08-24 11:33] VITALS: BP 148/57; PULSE 62; TEMP 98.5
--- NOTE | 2021-08-24 11:49 | NUR ---
Manju, at [facility], notified this SW that they have a room hold in [facility] for the patient. She reports that prior to hospitalization, the patient's nephew/DPOA-HC (Mello) and the patient had decided that her being in her apartment was not a safe option for her anymore. SW contacted the patient's nephew, Mello, and confirmed the above. He states that the plan is for the patient to go to [facility] for a skilled stay upon discharge. SW updated the patient's RN. SW faxed updates to [facility]. SW to continue to follow. [facility]*
[2021-08-24] MEDS ORDERED: MEDROL 4MG DOSPA4 MG PO (12:08)
--- NOTE | 2021-08-24 13:30 | NUR ---
COVID SWAB OBTAINED AND SENT TO LAB
--- NOTE | 2021-08-24 14:27 | NUR ---
The patient's RN notified ANY that the clinical team is ready to discharge the patient today. ANY notified Manju at [facility]. Manju reports that they are able to accept the patient today and transportation was set for 1500. ANY contacted and updated the patient's newphew/DPOA-HC, Mello. Mello is in agreement to the plan. ANY met with the patient and updated her. She is also in agreement to the plan. ANY presented and read the IM form outloud to the patient. The patient verbalized understanding and gave ANY approval to sign the form on her behalf. ANY provided her with a copy. The patient is to discharge today, 08/24, to [facility] for a skilled stay. Transportation was scheduled at 1500, via [facility]. No additional needs at this time.
--- NOTE | 2021-08-24 14:50 | NUR ---
Patients left forearm IV has been discontinued and removed by this nurse. Covered by gajosée and freddy.
--- NOTE | 2021-08-24 15:15 | NUR ---
PATIENT DISCHARGING TO [facility] SW. PACKET GIVEN TO PÉREZ ROBLES. RN DC'D IV SITE. TELE DC'D. PATIENT IS DRESSED, PACKED AND HAS OXYGEN TANK & WC HERE. PATIENT ESCORTED OUT AND DISCHARGED.
== END 2021-08-24 15:15 | DRG 258 ==
LOC: SURG 08:02 → COL.CAR 08:02 → SURG 12:12 → COL.CAR 12:59 → SURG 13:00
PROVIDERS: Internal Medicine; Internal Medicine Cardiovascular Disease; Physician Assistant; ADMIT Student in an Organized Health Care Education/Training Program
PROC: 0JH606Z Insertion of Pacemaker, Dual Chamber into Chest Subcutaneous Tissue and Fascia, Open Approach (ICD-10-PCS; principal; 2021-08-21)
PROC: 0JPT0PZ Removal of Cardiac Rhythm Related Device from Trunk Subcutaneous Tissue and Fascia, Open Approach (ICD-10-PCS; 2021-08-21)
DX: I11.0 Hypertensive heart disease with heart failure (principal); J96.01 Acute respiratory failure with hypoxia; I50.33 Acute on chronic diastolic (congestive) heart failure; J44.1 Chronic obstructive pulmonary disease with (acute) exacerbation; E78.5 Hyperlipidemia, unspecified; F32.A Depression, unspecified; I27.20 Pulmonary hypertension, unspecified; G47.00 Insomnia, unspecified; D64.9 Anemia, unspecified; E87.6 Hypokalemia; K74.60 Unspecified cirrhosis of liver; K21.9 Gastro-esophageal reflux disease without esophagitis; A08.4 Viral intestinal infection, unspecified; Z20.822 Contact with and (suspected) exposure to COVID-19; Z95.0 Presence of cardiac pacemaker; Z87.891 Personal history of nicotine dependence; Z79.82 Long term (current) use of aspirin; Z23 Encounter for immunization
CPT/HCPCS: 99222-AI; 99232-AI; 99233-AI; 99239; A9284; C1785; J0690; J1644; J1940; J2250; J2920; J3010; J7030; J7512

== ENCOUNTER 2021-10-02 16:58 | Emergency (ER) | payer MEDICARE, OTHER ==
[~2021-10-02] VITALS: Ht 154.9 cm; Wt 61.4 kg
[2021-10-02 16:58] VITALS: TEMP 98.4
[~2021-10-02 16:58] MED LIST changes: +CEPHALEXIN500 M1 PO; +INCRUSE EL62.5 MCG/A IH; +MEDROL 4MG DOSPA4 MG PO; +PRIL40 PO
[2021-10-02 17:50] LABS: BASO # 0.1 K/mm3 (0.0-0.2); BASO % 0.4 % (0.0-2.0); EOS % 0.2 % (0.0-4.0); GRAN # 9.3 K/mm3 (1.4-6.5); HEMATOCRIT 24.7 % (37.0-47.0); HEMOGLOBIN 7.8 g/dl (12.5-16.0); LYMPH # 2.9 K/mm3 (1.2-3.4); LYMPH % 22.2 % (20.0-51.0); MEAN CELL VOLUME 87 fl (80.0-100.0); MEAN CORPUSCULAR HEMOGLOBIN 27 pg (27-31); MEAN CORPUSCULAR HGB CONC 32 g/dl (33.0-37.0); MEAN PLATELET VOLUME 9.1 fl (7.4-10.4); MONO # 0.8 K/mm3 (0.1-0.6); MONO % 5.9 % (1.7-9.3); PLATELET COUNT 288 K/mm3 (130-400); RED BLOOD COUNT 2.84 M/mm3 (4.10-5.30); REDCELL DISTRIBUTION WIDTH-CV 13.8 % (11.5-14.5)
[2021-10-02 18:04] LABS: ALBUMIN 3.3 gm/dL (3.4-4.8); BILIRUBIN,TOTAL 0.2 mg/dL (0.2-1.2); CREATININE, serum 1.15 mg/dL (0.57-1.11); POTASSIUM 3.9 mmol/L (3.5-4.5); TOTAL PROTEIN 6.1 gm/dL (6.2-8.1)
[2021-10-02 19:55] VITALS: BP 118/52; PULSE 74
[2021-10-02 20:10] LABS: COLLECTION METHOD CLEAN CATCH
[2021-10-02 20:18] LABS: PH 5 (5-8); SQUAMOUS EPITHELIAL None Seen /hpf (0-10); URINE APPEARANCE Clear (CLEAR/HAZY); URINE BACTERIA None Seen /hpf (NONE SEEN); URINE BILIRUBIN Negative (NEGATIVE); URINE BLOOD Negative (NEGATIVE); URINE COLOR Yellow (YELLOW); URINE GLUCOSE Negative (NEGATIVE); URINE KETONE Negative (NEGATIVE); URINE LEUKOCYTE ESTERASE Negative (NEGATIVE); URINE NITRATE Negative (NEGATIVE); URINE PROTEIN(semi-quant) Negative (NEGATIVE); URINE RBC 0-2 /hpf (0-2); URINE UROBILINOGEN Negative (NEGATIVE)
== END 2021-10-02 19:57 | disposition home or self-care (01) ==
LOC: COL.ER 16:58
PROVIDERS: Family Medicine
DX: S01.01XA Laceration without foreign body of scalp, initial encounter (principal); D64.9 Anemia, unspecified; W07.XXXA Fall from chair, initial encounter

== ENCOUNTER 2021-10-14 23:40 | Emergency (ER) | payer MEDICARE, OTHER ==
[~2021-10-14] VITALS: Ht 154.9 cm; Wt 65.9 kg
[2021-10-14 23:40] VITALS: TEMP 98.8
[2021-10-15] MEDS ORDERED: NORCO 325 MG-51 TAB PO (02:13)
[2021-10-15 03:06] VITALS: BP 148/91; PULSE 74
== END 2021-10-15 03:06 | disposition home or self-care (01) ==
LOC: COL.ER 23:40
DX: M54.6 Pain in thoracic spine (principal); M54.50 Low back pain, unspecified; J44.9 Chronic obstructive pulmonary disease, unspecified; Z99.81 Dependence on supplemental oxygen

== ENCOUNTER 2021-12-21 10:49 | Emergency (ER) | payer MEDICARE, OTHER ==
[~2021-12-21] VITALS: Ht 154.9 cm; Wt 60.0 kg
[2021-12-21 10:55] VITALS: TEMP 98.2
[2021-12-21 11:38] LABS: HEMOGLOBIN 10.8 g/dl (12.5-16.0); MEAN CELL VOLUME 93 fl (80.0-100.0); MEAN CORPUSCULAR HEMOGLOBIN 29 pg (27-31); MEAN CORPUSCULAR HGB CONC 32 g/dl (33.0-37.0); MEAN PLATELET VOLUME 9.5 fl (7.4-10.4); PLATELET COUNT 200 K/mm3 (130-400); RED BLOOD COUNT 3.67 M/mm3 (4.10-5.30); REDCELL DISTRIBUTION WIDTH-CV 20.6 % (11.5-14.5)
[2021-12-21 11:59] LABS: ALBUMIN 3.7 gm/dL (3.4-4.8); BILIRUBIN,TOTAL 0.7 mg/dL (0.2-1.2); CALCIUM 8.1 mg/dL (8.4-10.2); CREATININE, serum 0.76 mg/dL (0.57-1.11); TOTAL PROTEIN 6.7 gm/dL (6.2-8.1)
[2021-12-21 12:07] LABS: POTASSIUM 3.3 mmol/L (3.5-4.5)
[2021-12-21 12:11] LABS: HYPOCHROMIA 2+; LYMPHOCYTE 13 % (20.0-51.0); NEUTROPHILS 86 % (42.0-75.2)
[2021-12-21 12:12] LABS: ANISOCYTOSIS 2+; PLATELET ESTIMATE NORMAL (NORMAL)
[2021-12-21 12:37] LABS: COLLECTION METHOD CLEAN CATCH
[2021-12-21 12:44] LABS: PH 7 (5-8); SQUAMOUS EPITHELIAL None Seen /hpf (0-10); URINE APPEARANCE Clear (CLEAR/HAZY); URINE BACTERIA None Seen /hpf (NONE SEEN); URINE BILIRUBIN Negative (NEGATIVE); URINE BLOOD Negative (NEGATIVE); URINE COLOR Straw (YELLOW); URINE GLUCOSE Negative (NEGATIVE); URINE KETONE 1+ (NEGATIVE); URINE LEUKOCYTE ESTERASE Negative (NEGATIVE); URINE NITRATE Negative (NEGATIVE); URINE PROTEIN(semi-quant) Negative (NEGATIVE); URINE RBC 0-2 /hpf (0-2); URINE UROBILINOGEN Negative (NEGATIVE)
--- NOTE | 2021-12-21 15:20 | NUR ---
ANY called to the ED to assist patient with care needs before discharging. ANY met with patient, marilee Adamson [phone] present. ANY provided permission to discuss care of patient with nimariama. Nimariama provided that she needed some assistance with obtaining information on services for patient due to being weak and unable to fully assist her some with some ADL's. Patient currently resides at [facility] independent living. ANY provided recommendations and resources on HH. ANY provided permission to contact [facility]. ANY contacted agency to assist with coordinating services for patient. [facility] staff stated they could have transporation come and pick patient up and assist with care needs upon return. Marilee provided if needed she could stay with patient for the evening in patient's apartment until further assistance is provided. [facility] staff stated that patient may be able to go down to their prison area to assist. Documentation faxed to facility by ED nurse. Nothing further.
[2021-12-21 15:34] VITALS: BP 144/65; PULSE 84
== END 2021-12-21 15:34 ==
LOC: COL.ER 10:49
PROVIDERS: Nurse Practitioner Primary Care
DX: R53.1 Weakness (principal); R11.0 Nausea; Z73.89 Other problems related to life management difficulty; Z87.891 Personal history of nicotine dependence
CPT/HCPCS: J2405; J7030; Q9967

== ENCOUNTER 2022-01-11 20:38 | Emergency (ER) | payer MEDICARE, OTHER ==
[~2022-01-11] VITALS: Ht 154.9 cm; Wt 59.1 kg
[2022-01-11 20:44] VITALS: TEMP 98.5
[2022-01-11 21:43] LABS: BASO % 0.2 % (0.0-2.0); EOS % 0.1 % (0.0-4.0); GRAN # 6.1 K/mm3 (1.4-6.5); GRAN % 64.8 % (42.2-75.2); HEMOGLOBIN 10.8 g/dl (12.5-16.0); LYMPH # 2.4 K/mm3 (1.2-3.4); LYMPH % 25.3 % (20.0-51.0); MEAN CELL VOLUME 91 fl (80.0-100.0); MEAN CORPUSCULAR HEMOGLOBIN 30 pg (27-31); MEAN CORPUSCULAR HGB CONC 33 g/dl (33.0-37.0); MEAN PLATELET VOLUME 9.2 fl (7.4-10.4); MONO # 0.9 K/mm3 (0.1-0.6); MONO % 9.3 % (1.7-9.3); PLATELET COUNT 307 K/mm3 (130-400); REDCELL DISTRIBUTION WIDTH-CV 16.3 % (11.5-14.5)
[2022-01-11 21:50] LABS: HEMATOCRIT 32.9 % (37.0-47.0)
[2022-01-11 22:01] LABS: ALBUMIN 3.6 gm/dL (3.4-4.8); BILIRUBIN,TOTAL 0.2 mg/dL (0.2-1.2); CALCIUM 8.7 mg/dL (8.4-10.2); CREATININE, serum 0.98 mg/dL (0.57-1.11); POTASSIUM 4.2 mmol/L (3.5-4.5); TOTAL PROTEIN 6.9 gm/dL (6.2-8.1)
[2022-01-12 00:28] VITALS: BP 140/87; PULSE 87
== END 2022-01-12 00:28 | disposition home or self-care (01) ==
LOC: COL.ER 20:38
PROVIDERS: Emergency Medicine Emergency Medical Services
DX: S51.011A Laceration without foreign body of right elbow, initial encounter (principal); S81.811A Laceration without foreign body, right lower leg, initial encounter; R07.81 Pleurodynia; F10.129 Alcohol abuse with intoxication, unspecified; W19.XXXA Unspecified fall, initial encounter

== ENCOUNTER 2022-02-26 18:52 | Observation (INO) | payer MEDICARE, OTHER ==
[~2022-02-26] VITALS: Ht 152.4 cm; Wt 59.1 kg
[~2022-02-26 18:52] MED LIST changes: +ASPIRIN E.C. 8181 MG PO; +DUO-KAPS1 CAP PO; +IRON TABLETS325 MG PO; +MELATONIN ER10 MG PO; +NATURAL IRON65 MG PO; +PREDNISONE10 MG PO
[2022-02-26 19:23] LABS: BASO # 0.1 K/mm3 (0.0-0.2); BASO % 0.6 % (0.0-2.0); EOS % 0.1 % (0.0-4.0); GRAN # 8.2 K/mm3 (1.4-6.5); GRAN % 75.4 % (42.2-75.2); LYMPH # 1.9 K/mm3 (1.2-3.4); LYMPH % 17.3 % (20.0-51.0); MEAN CELL VOLUME 95 fl (80.0-100.0); MEAN CORPUSCULAR HGB CONC 33 g/dl (33.0-37.0); MEAN PLATELET VOLUME 9.4 fl (7.4-10.4); MONO # 0.7 K/mm3 (0.1-0.6); MONO % 6.1 % (1.7-9.3); PLATELET COUNT 214 K/mm3 (130-400); RED BLOOD COUNT 2.94 M/mm3 (4.10-5.30)
[2022-02-26 19:26] LABS: HEMATOCRIT 27.9 % (37.0-47.0); HEMOGLOBIN 9.2 g/dl (12.5-16.0); MEAN CORPUSCULAR HEMOGLOBIN 31 pg (27-31)
[2022-02-26 19:34] LABS: PROTHROMBIN TIME 11.5 SECONDS (9.7-12.8)
[2022-02-26 19:42] LABS: ALANINE AMINOTRANSFERASE 27 U/L (0-55); ALBUMIN 3.6 gm/dL (3.4-4.8); ALKALINE PHOSPHATASE 130 U/L (40-150); ANION GAP 17 mmol/L (7-16); AST,SGOT 39 U/L (5-34); BLOOD UREA NITROGEN 21 mg/dL (10-20); CALCIUM 8.8 mg/dL (8.4-10.2); CARBON DIOXIDE 21 mmol/L (23-31); CHLORIDE 106 mmol/L (98-107); CREATININE, serum 0.96 mg/dL (0.57-1.11); GLUCOSE 141 mg/dL (70-99); LIPASE 47 U/L (8-78); MAGNESIUM 1.7 mg/dL (1.6-2.6); POTASSIUM 3.5 mmol/L (3.5-4.5); SODIUM 144 mmol/L (136-145); TOTAL PROTEIN 6.7 gm/dL (6.2-8.1)
[2022-02-26 19:43] LABS: ALCOHOL(ethanol),MEDICAL < 10 mg/dL (0-10)
[2022-02-26 20:50] LABS: COLLECTION METHOD CLEAN CATCH
[2022-02-26 20:57] LABS: PH 6 (5-8); SQUAMOUS EPITHELIAL 0-2 /hpf (0-10); URINE APPEARANCE Clear (CLEAR/HAZY); URINE BACTERIA Rare /hpf (NONE SEEN); URINE BLOOD Negative (NEGATIVE); URINE COLOR Straw (YELLOW); URINE GLUCOSE Negative (NEGATIVE); URINE KETONE Trace (NEGATIVE); URINE NITRATE Negative (NEGATIVE); URINE PROTEIN(semi-quant) Negative (NEGATIVE); URINE RBC 0-2 /hpf (0-2); URINE UROBILINOGEN Negative (NEGATIVE)
[2022-02-27] VITALS (7 sets, daily range): BP systolic 131–151; BP diastolic 49–60; PULSE 72–103; TEMP 98–98.7
--- NOTE | 2022-02-27 01:37 | NUR ---
ADMITTED TO ROOM 342 PER BED FROM ER. ASSISTED TO BR. VOIDED. VERY UNSTEADY AND WEAK WITH AMB. PT RELATES DIZZY WHEN AMB. VERY TIRED. TO BED. CALL LIGHT IN RERACH. BED ALARM SET.
--- NOTE | 2022-02-27 02:04 | NUR ---
PT ON ROOM AIR. NO DISTRESS.
--- NOTE | 2022-02-27 02:41 | NUR ---
HAD TO WAKE PT FOR MEDICATION. PT ANGRY. RELATED "SHIT, LIKE I'M GOING TO IF I DONT TAKE THIS MEDICINE." INFORMED PT SHE HAS A RIGHT TO REFUSE ANY OF HER MEDICATIONS. INFORMED PT OD POTASSIUM PROTOCOL AND SCHEDULED REPLACEMENT.
[2022-02-27 05:56] LABS: MEAN CELL VOLUME 96 fl (80.0-100.0); MEAN CORPUSCULAR HGB CONC 33 g/dl (33.0-37.0); MEAN PLATELET VOLUME 9.7 fl (7.4-10.4); PLATELET COUNT 198 K/mm3 (130-400); RED BLOOD COUNT 2.84 M/mm3 (4.10-5.30); REDCELL DISTRIBUTION WIDTH-CV 15.1 % (11.5-14.5)
[2022-02-27 06:01] LABS: HEMATOCRIT 27.2 % (37.0-47.0); MEAN CORPUSCULAR HEMOGLOBIN 32 pg (27-31)
[2022-02-27 06:20] LABS: LYMPHOCYTE 7 % (20.0-51.0); NEUTROPHILS 93 % (42.0-75.2); PLATELET ESTIMATE NORMAL (NORMAL)
[2022-02-27 06:25] LABS: CALCIUM 8.8 mg/dL (8.4-10.2); CREATININE, serum 0.96 mg/dL (0.57-1.11); POTASSIUM 4.4 mmol/L (3.5-4.5)
--- NOTE | 2022-02-27 08:00 | NUR ---
PATIENT IS A&O. VSS ON TELE. DENIES C/O SOA OR PAIN. PATIENT HAS BEEN UP TO THE BATHROOM A COUPLE TIMES ALREADY. PATIENT REPORTS LOOSE STOOL. LASIX GIVEN PER ORDERS WITH AM MEDS. RIGHT WRIST IV TO INT. PATIENT HAS HX OF CHF. HEAD TO TOE ASSESSMENT COMPLETE. DNR STATUS. PATIENT LIVES IN [facility]. AM MEDS GIVEN. BREAKFAST TRAY AT BEDSIDE. NO OTHER NEEDS AT THIS TIME. CALL LIGHT IN REACH.
--- NOTE | 2022-02-27 09:55 | NUR ---
PATIENT AMBULATING IN HALLS WITH PT AND USE OF WALKER. SEE PT NOTES.
--- NOTE | 2022-02-27 13:25 | NUR ---
Data Management Analyst visited with patient. Nothing else needed at this time.
--- NOTE | 2022-02-27 19:00 | NUR ---
PT AMB IN SIFUENTES WITH WALKER WITH SBA OF DIRECTOR OF NUCLEAR MEDICINE. NO RESP DISTRESS.
--- NOTE | 2022-02-27 19:15 | NUR ---
TX GIVEN VIA MOUTHPIECE, TOLERATED WELL. PULMICORT/PERFOROMIST FIRST, FOLLOWED BY DUONEB. PT ON ROOM AIR BEFORE AND AFTER TX.
--- NOTE | 2022-02-27 19:27 | NUR ---
PT REQUESTED AT THIS TIME THAT I DON'T WAKE HER IF SLEEPING AT THE SCHEDULED 0200 TX TIME.
--- NOTE | 2022-02-27 21:00 | NUR ---
PT RESTING IN BED. NO RESP DISTRESS. PT REPORTS DR TOLD SHE COULD GO HOME TOMORROW. INFORMED OF DISCHARGE PROCESS. PT VERBALIZES UNDERSTANDING. CALL LIGHT IN REACH. BED ALARM SET.
[2022-02-28 04:37] VITALS: BP 140/55; PULSE 82; TEMP 98.6
[2022-02-28 07:53] LABS: MEAN CELL VOLUME 96 fl (80.0-100.0); MEAN CORPUSCULAR HGB CONC 33 g/dl (33.0-37.0); MEAN PLATELET VOLUME 10.4 fl (7.4-10.4); PLATELET COUNT 186 K/mm3 (130-400); RED BLOOD COUNT 2.67 M/mm3 (4.10-5.30); REDCELL DISTRIBUTION WIDTH-CV 15.1 % (11.5-14.5)
[2022-02-28 07:58] LABS: HEMATOCRIT 25.7 % (37.0-47.0); HEMOGLOBIN 8.5 g/dl (12.5-16.0); MEAN CORPUSCULAR HEMOGLOBIN 32 pg (27-31)
--- NOTE | 2022-02-28 08:00 | NUR ---
PATIENT SEEMS A LITTLE CONFUSED THIS AM, STATING HER CALL LIGHT WASN'T WORKING AND ALL SHE IS GETTING IS A MACHINE RECORDING. PATIENT WAS HEARING HER TV THROUGH THE CALL LIGHT SPEAKER. NURSING WAS ABLE TO RE-ORIENT HER EASILY. VSS ON TELE. NOTED ELEVATED WBC OF 11.2 BUT PATIENT HAS BEEN GETTING STEROIDS. HEAD TO TOE ASSESSMENT COMPLETE, SEE CHARTING. DNR STATUS. PATIENT HOPING TO DISCHARGE HOME LATER TODAY.
[2022-02-28 08:01] VITALS: BP 148/59; PULSE 81; TEMP 98.7
[2022-02-28 08:04] LABS: CALCIUM 9.1 mg/dL (8.4-10.2); CREATININE, serum 0.8 mg/dL (0.57-1.11); POTASSIUM 3.9 mmol/L (3.5-4.5)
[2022-02-28 08:52] LABS: LYMPHOCYTE 1 % (20.0-51.0); NEUTROPHILS 98 % (42.0-75.2); PLATELET ESTIMATE NORMAL (NORMAL)
[2022-02-28 08:53] LABS: ANISOCYTOSIS 1+
--- NOTE | 2022-02-28 12:50 | NUR ---
SW met with patient to complete intake. Patient provides that she lives alone at [facility] independent living. Patient utilizes a walker, and is independent with ADL's. Patient provides that she does not utilize home health services. PCP is [facility], pharmacy is [facility]. POA/guardian is Mello [phone]. Patient plans to return to [facility] on this day. Transporation has been set up for her return at 1pm. SW will continue to return. DC plan: [facility]
--- NOTE | 2022-02-28 13:14 | NUR ---
PATIENT DISCHARGING HOME VIA WC BACK TO [facility]. GAVE DISCHARGE INSTRUCTIONS AND DISCUSSED PATIENT CALLING TO MAKE 1 WEEK F/U APT WITH HER PCP. DC'D RIGHT WRIST IV SITE AND COVERED WITH GAUZE & COBAN. TELE DC'D. PATIENT IS DRESSED, PACKED, AND DISCHARGED WITH [facility] STAFF.
--- NOTE | 2022-03-01 14:41 | NUR ---
field ironworker contacted Manju at [facility] to confirms that they attempted to provide home health services and had an assisted living apartment open, however the patient adamentally denies home health services and moving to an assisted living apartment. Patient's DPOA for Health care was involved in these discussions, however, patient declined all help that was offered.
== END 2022-02-28 13:10 | disposition home or self-care (01) ==
LOC: COL.ER 18:52 → SURG 23:50
PROVIDERS: Physician Assistant; Student in an Organized Health Care Education/Training Program; ADMIT Internal Medicine
DX: R42 Dizziness and giddiness (principal)
CPT/HCPCS: G0378; J1940; J2405; J2930; J7030

== ENCOUNTER 2022-04-09 03:36 | Inpatient (IN) | payer MEDICARE, OTHER ==
[~2022-04-09] VITALS: Ht 154.9 cm; Wt 61.2 kg
[2022-04-09 04:12] LABS: BASO # 0.1 K/mm3 (0.0-0.2); BASO % 0.7 % (0.0-2.0); EOS % 0.2 % (0.0-4.0); GRAN # 7.2 K/mm3 (1.4-6.5); GRAN % 69.9 % (42.2-75.2); LYMPH # 1.9 K/mm3 (1.2-3.4); LYMPH % 18.8 % (20.0-51.0); MEAN CELL VOLUME 101 fl (80.0-100.0); MEAN CORPUSCULAR HGB CONC 33 g/dl (33.0-37.0); MEAN PLATELET VOLUME 9.1 fl (7.4-10.4); PLATELET COUNT 336 K/mm3 (130-400); RED BLOOD COUNT 2.61 M/mm3 (4.10-5.30); REDCELL DISTRIBUTION WIDTH-CV 15.5 % (11.5-14.5)
[2022-04-09 04:17] LABS: COLLECTION METHOD CLEAN CATCH
[2022-04-09 04:26] LABS: ALBUMIN 3.6 gm/dL (3.4-4.8); BILIRUBIN,TOTAL 0.4 mg/dL (0.2-1.2); CALCIUM 9.4 mg/dL (8.4-10.2); CREATININE, serum 0.86 mg/dL (0.57-1.11); HEMATOCRIT 26.3 % (37.0-47.0); HEMOGLOBIN 8.7 g/dl (12.5-16.0); MEAN CORPUSCULAR HEMOGLOBIN 33 pg (27-31); POTASSIUM 4.6 mmol/L (3.5-4.5); TOTAL PROTEIN 6.7 gm/dL (6.2-8.1)
[2022-04-09 04:26] LABS: MUCOUS Present (NOT PRESENT); SQUAMOUS EPITHELIAL None Seen /hpf (0-10); URINE BACTERIA None Seen /hpf (NONE SEEN); URINE RBC 0-2 /hpf (0-2)
[2022-04-09 04:27] LABS: PH 5 (5-8); URINE APPEARANCE Clear (CLEAR/HAZY); URINE BLOOD TRACE-INTACT (NEGATIVE); URINE COLOR Yellow (YELLOW); URINE GLUCOSE Negative (NEGATIVE); URINE KETONE TRACE (NEGATIVE); URINE NITRATE Negative (NEGATIVE); URINE PROTEIN(semi-quant) Negative (NEGATIVE); URINE UROBILINOGEN 0.2 (NEGATIVE)
[2022-04-09 04:31] LABS: TROPONIN-I 0.012 ng/mL (0.00-0.033)
[2022-04-09 06:36] VITALS: BP 159/53; PULSE 80; TEMP 98.1
[2022-04-09] MEDS ORDERED: ALDACTONE 100M100 MG PO (06:58)
[2022-04-09 07:49] VITALS: BP 130/51; PULSE 82; TEMP 98.2
--- NOTE | 2022-04-09 09:13 | NUR ---
Pt assessment complete. Pt is laying in bed upon entry, she is A/O x4. Her breathing is tachypneic and patient is SOB, worsened with any movement. She does recover with time. 3L O2 via NC. Pain to bilateral legs. Purewick in place. POC discussed with patient, all questions answered at this time.
[2022-04-09 11:06] VITALS: BP 155/52; PULSE 72; TEMP 97.9
[2022-04-09 14:26] LABS: HEMATOCRIT 26.9 % (37.0-47.0); HEMOGLOBIN 8.7 g/dl (12.5-16.0)
--- NOTE | 2022-04-09 14:44 | NUR ---
Data Storage Specialist met with patient to discuss discharge planning. Patient lives at [facility] and sees Dr. Eldridge for primary care. Patient obtains medications from either [facility] or [facility]. Patient has home oxygen set up through [facility] and also uses a walker for ambulation. Patient's DPOA-HC is her newphew, Mello Adamson (ph#[phone]) and copy is located in EMR along with Living Will. SW reviewed OT recommendation for SNF. Patient is from [facility] and advised she would be agreeable to go to the [facility] for a SNF stay as she has been there before. SW contacted Manju at [facility] and faxed referral. SW also contacted Mello and provided update on discharge planning. Discharge Planning: [facility] SNF
[2022-04-09 15:55] VITALS: BP 139/46; PULSE 80; TEMP 97.9
[2022-04-09 15:56] VITALS: BP 146/50; PULSE 80; TEMP 97.9
--- NOTE | 2022-04-09 19:23 | NUR ---
TXS GIVEN VIA MASK, DUONEB FIRST, FOLLOWED BY PERFOROMIST/BUDESONIDE. TOLERATED WELL. PT ENCOURAGED TO SIT UP MUCH POSSIBLE WHEN AWAKE, DUE TO VERY LITTLE AIR MOVEMENT HEARD IN BASES. RN INFORMED OF THESE DETAILS. FAMILY X 2 AT BEDSIDE.
[2022-04-09 20:42] VITALS: BP 142/57; PULSE 92; TEMP 98.5
[2022-04-10] VITALS (7 sets, daily range): BP systolic 129–147; BP diastolic 43–63; PULSE 66–80; TEMP 97.3–99.3
--- NOTE | 2022-04-10 05:00 | NUR ---
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 PT RESTING IN BED WATCHING TV. PT COMPLAINED OF LEG PAIN. PT GIVEN TYLENOL FOR PAIN. PT FELT PAIN MEDICATION WAS SOMEWHAT EFFECTIVE. PT ALSO COMPLAINED OF INSOMNIA. PT GIVEN MELATONIN. PT DID NOT FEEL MELATONIN WAS EFFECTIVE. PT WOULD LIKE SOMETHING STONGER FOR HER INSOMNIA. IMFORMATION PASSED ON TO DAYSHIFT RN TO PAST ON TO HOSPITALIST DURING ROUNDS. PT DENIED CHEST PAIN, PALPITATIONS, SOB, N,V,D OR DIZZINESS. PT EXPRESSED NO ADDITIONAL NEEDS AT THIS TIME. CALL LIGHT WITHIN REACH.
[2022-04-10 06:35] LABS: MEAN CELL VOLUME 101 fl (80.0-100.0); MEAN CORPUSCULAR HGB CONC 32 g/dl (33.0-37.0); MEAN PLATELET VOLUME 9.4 fl (7.4-10.4); PLATELET COUNT 321 K/mm3 (130-400); RED BLOOD COUNT 2.56 M/mm3 (4.10-5.30); REDCELL DISTRIBUTION WIDTH-CV 15.1 % (11.5-14.5)
[2022-04-10 06:47] LABS: HEMATOCRIT 25.9 % (37.0-47.0); HEMOGLOBIN 8.4 g/dl (12.5-16.0); MEAN CORPUSCULAR HEMOGLOBIN 33 pg (27-31)
[2022-04-10 06:51] LABS: ALBUMIN 3.5 gm/dL (3.4-4.8); CALCIUM 9.9 mg/dL (8.4-10.2); CREATININE, serum 0.85 mg/dL (0.57-1.11); MAGNESIUM 1.7 mg/dL (1.6-2.6); PHOSPHOROUS 1.9 mg/dL (2.3-4.7); POTASSIUM 3.7 mmol/L (3.5-4.5)
[2022-04-10 07:22] LABS: ANISOCYTOSIS 1+; HYPOCHROMIA 1+; LYMPHOCYTE 7 % (20.0-51.0); NEUTROPHILS 74 % (42.0-75.2); PLATELET ESTIMATE NORMAL (NORMAL)
--- NOTE | 2022-04-10 08:00 | NUR ---
Patient laying in bed, A&Ox4. VSS 3L NC O2. Denies SOB. IV CDI. Denies pain and discomfort, reports being tired and wants to sleep. Patient on FR and tolerating well. Call light within reach. Bed alarm on
--- NOTE | 2022-04-10 13:31 | NUR ---
Bar Host/Hostess rounds: Bar Host/Hostess visit declined. Patient did ask for prayer. Bar Host/Hostess prayed from the doorway of the room. Patient thanked fitness centre manager.
--- NOTE | 2022-04-10 17:52 | NUR ---
Patient had an uneventful day. A&Ox3. VSS 3L NC O2, no reported SOB, reports being tired. Denies pain and discomfort. Purewick in place. Call light within reach. Bed alarm on
--- NOTE | 2022-04-10 19:53 | NUR ---
TX GIVEN VIA MASK, TOLERATED WELL. PT STATED THAT SHE CANT TELL ANY DIFFERENCE FROM TAKING THE DUONEB AND REFUSED IT AT THIS TIME.
--- NOTE | 2022-04-11 04:45 | NUR ---
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 PT RESTING IN BED NAPPING. PT COMPLAINED OF INSOMNIA AND LEG PAIN. PT GIVEN XANAX FOR INSOMNIA AND TYLENOL FOR PAIN. MEDICATES WERE EFFECTIVE. PT SLEPT THE WHOLE NIGHT. PT DENIED CHEST PAIN, PALPITATIONS, N,V,D OR DIZZINESS. PT EXPRESSED NO ADDITIONAL NEEDS AT THIS TIME. CALL LIGHT WITHIN REACH.
[2022-04-11 04:49] VITALS: BP 143/61; PULSE 71; TEMP 98.7
[2022-04-11 06:33] LABS: BASO % 0.2 % (0.0-2.0); GRAN % 73.7 % (42.2-75.2); LYMPH % 14.9 % (20.0-51.0); MEAN CELL VOLUME 101 fl (80.0-100.0); MEAN CORPUSCULAR HGB CONC 33 g/dl (33.0-37.0); MEAN PLATELET VOLUME 9.6 fl (7.4-10.4); MONO # 1.4 K/mm3 (0.1-0.6); MONO % 10.6 % (1.7-9.3); PLATELET COUNT 325 K/mm3 (130-400); RED BLOOD COUNT 2.79 M/mm3 (4.10-5.30)
[2022-04-11 06:34] LABS: HEMATOCRIT 28.2 % (37.0-47.0); HEMOGLOBIN 9.2 g/dl (12.5-16.0); MEAN CORPUSCULAR HEMOGLOBIN 33 pg (27-31)
[2022-04-11 07:03] LABS: ALBUMIN 3.4 gm/dL (3.4-4.8); CALCIUM 9.8 mg/dL (8.4-10.2); CREATININE, serum 0.77 mg/dL (0.57-1.11); MAGNESIUM 1.4 mg/dL (1.6-2.6); POTASSIUM 3.5 mmol/L (3.5-4.5)
[2022-04-11 07:13] VITALS: BP 139/48; PULSE 73; TEMP 99
[2022-04-11 11:15] VITALS: BP 113/41; PULSE 60; TEMP 98.4
[2022-04-11 15:21] VITALS: BP 113/43; PULSE 69; TEMP 99.3
--- NOTE | 2022-04-11 17:53 | NUR ---
PATIENT AWAKE AND IN BED AT THIS TIME. SHIFT ASSESSMENT COMPLETED THIS MORNING, MEDICATIONS GIVEN PER ORDER. PATIENT IS ALERT AND ORIENTED X4. TOLERATING MEDICATIONS AND FOOD WELL. NO C/O PAIN AT THIS TIME. ON IV LASIX, VSS. ON 2,000ML FLUID RESTRICTION. NO COMPLAINTS OR FURTHER NEEDS AT THIS TIME. BED IN LOWEST, LOCKED POSITION, CALL LIGHT WITHIN REACH.
[2022-04-11 19:24] VITALS: BP 137/48; PULSE 70; TEMP 97.9
[2022-04-11 23:56] VITALS: BP 131/42; PULSE 74; TEMP 97.8
[2022-04-12 03:50] VITALS: BP 130/40; PULSE 71; TEMP 97.8
--- NOTE | 2022-04-12 04:30 | NUR ---
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 PT SITTING ON THE SIDE OF THE BED EATING FRUIT. PT IN A GOOD MOOD. PT DID COMPLAIN OF CHRONIC LEG PAIN. PT GIVEN TYLENOL FOR HER PAIN. MEDICATION WAS EFFECTIVE FOR TONIGHT. PT DENIED CHEST PAIN, PALPITATIONS, N,V,D OR DIZZINESS. PT REQUESTED AND GIVEN XANAX FOR INSOMNIA. MEDICATION WAS EFFECTIVE, PT SLEPT ALL NIGHT. PT EXPRESSED NO ADDITIONAL NEEDS AT THIS TIME. CALL LIGHT WITHIN REACH.
[2022-04-12 06:26] LABS: BASO # 0.1 K/mm3 (0.0-0.2); BASO % 0.6 % (0.0-2.0); EOS # 0.1 K/mm3 (0.0-0.7); EOS % 0.6 % (0.0-4.0); GRAN # 6.7 K/mm3 (1.4-6.5); GRAN % 65.5 % (42.2-75.2); LYMPH # 2.3 K/mm3 (1.2-3.4); MEAN CELL VOLUME 104 fl (80.0-100.0); MEAN CORPUSCULAR HGB CONC 32 g/dl (33.0-37.0); MEAN PLATELET VOLUME 9.6 fl (7.4-10.4); MONO # 1.1 K/mm3 (0.1-0.6); MONO % 10.6 % (1.7-9.3); PLATELET COUNT 306 K/mm3 (130-400); RED BLOOD COUNT 2.81 M/mm3 (4.10-5.30); REDCELL DISTRIBUTION WIDTH-CV 14.7 % (11.5-14.5)
[2022-04-12 06:27] LABS: HEMATOCRIT 29.3 % (37.0-47.0); HEMOGLOBIN 9.3 g/dl (12.5-16.0); MEAN CORPUSCULAR HEMOGLOBIN 33 pg (27-31)
[2022-04-12 06:40] LABS: ALBUMIN 3.1 gm/dL (3.4-4.8); CREATININE, serum 0.78 mg/dL (0.57-1.11); MAGNESIUM 1.5 mg/dL (1.6-2.6); PHOSPHOROUS 2.6 mg/dL (2.3-4.7); POTASSIUM 3.8 mmol/L (3.5-4.5)
[2022-04-12 07:52] VITALS: BP 129/42; PULSE 72; TEMP 97.9
--- NOTE | 2022-04-12 08:34 | NUR ---
PT ALERT AND ORIENTED TIMES 4. PT RATES LEG PAIN 5 OUT OF 10 ON A NUMERIC SCALE. MEDICATION GIVEN. VITALS STABLE. PT ON 2 L OF O2 THROUGH NASAL CANNULA. CALL LIGHT WITHIN REACH. NO FURTHER NEEDS IDENTIFIED.
[2022-04-12 11:04] VITALS: BP 123/45; PULSE 75; TEMP 98
--- NOTE | 2022-04-12 11:19 | NUR ---
Putty Mixer And Applier faxed clinical updates to Manju at [facility].
[2022-04-12] MEDS ORDERED: LASIX 40MG TABL40 MG PO (13:44)
[2022-04-12 16:08] VITALS: BP 123/43; PULSE 71; TEMP 97.7
--- NOTE | 2022-04-12 18:03 | NUR ---
PT ALERT AND ORIENTED TIMES 4 LAYING IN BED. VITALS STABLE, PT ON 1 L OF O2. CALL LIGHT WITHIN REACH, NO FURTHER NEEDS IDENTIFIED.
--- NOTE | 2022-04-12 20:08 | NUR ---
PERFOROMIST AND BUDESONIDE TX GIVEN VIA MASK, TOLERATED WELL. PT REFUSED DUONEB AT THIS TIME.
[2022-04-12 20:13] VITALS: BP 126/41; PULSE 66; TEMP 97.7
--- NOTE | 2022-04-12 21:42 | NUR ---
Patient assessed around 2009. Alert and oriented, and able to make needs known. Reported pain to BLE, and given PRN Acetaminophen as requested. On oxygen at 1 L/min via NC. LS expiratory wheezes throughout. Patient voices no questions, needs, or concerns at this time. In bed with call light within reach. Bed alarm on.
[2022-04-13 00:01] VITALS: BP 114/40; PULSE 63; TEMP 98.4
[2022-04-13 05:25] VITALS: BP 135/48; PULSE 67; TEMP 98.1
--- NOTE | 2022-04-13 05:38 | NUR ---
Patient on oxygen at 1 L/min via NC. Has received PRN Acetaminophen for leg pain as requested. Has voiced no further questions, needs, or concerns at this time. In bed with call light within reach. High fall risk precautions in place. Bed alarm on.
[2022-04-13 07:04] VITALS: BP 135/46; PULSE 67; TEMP 98.7
--- NOTE | 2022-04-13 07:07 | NUR ---
BEDSIDE REPORT DONE. PATIENT RESTING IN BED
[2022-04-13 07:12] LABS: BASO # 0.1 K/mm3 (0.0-0.2); BASO % 0.6 % (0.0-2.0); EOS # 0.1 K/mm3 (0.0-0.7); EOS % 0.8 % (0.0-4.0); GRAN # 6.1 K/mm3 (1.4-6.5); GRAN % 65.9 % (42.2-75.2); LYMPH # 2.1 K/mm3 (1.2-3.4); LYMPH % 22.3 % (20.0-51.0); MEAN CELL VOLUME 102 fl (80.0-100.0); MEAN CORPUSCULAR HGB CONC 32 g/dl (33.0-37.0); MEAN PLATELET VOLUME 9.6 fl (7.4-10.4); MONO # 0.9 K/mm3 (0.1-0.6); MONO % 9.6 % (1.7-9.3); PLATELET COUNT 314 K/mm3 (130-400); REDCELL DISTRIBUTION WIDTH-CV 14.6 % (11.5-14.5)
[2022-04-13 07:13] LABS: HEMATOCRIT 29.5 % (37.0-47.0); HEMOGLOBIN 9.3 g/dl (12.5-16.0); MEAN CORPUSCULAR HEMOGLOBIN 32 pg (27-31)
[2022-04-13 07:21] LABS: ALBUMIN 3.3 gm/dL (3.4-4.8); CALCIUM 10.2 mg/dL (8.4-10.2); CREATININE, serum 0.86 mg/dL (0.57-1.11); MAGNESIUM 2.1 mg/dL (1.6-2.6); PHOSPHOROUS 2.5 mg/dL (2.3-4.7); POTASSIUM 4.5 mmol/L (3.5-4.5)
[2022-04-13] MEDS ORDERED: PROAIR HFA0.09 MG/AC IH (08:30)
[2022-04-13] MEDS ORDERED: INCRUSE EL62.5 MCG/A IH (08:30)
[2022-04-13] MEDS ORDERED: TWYNSTA PO (08:31)
[2022-04-13] MEDS ORDERED: LOPRESSOR 225 MG/TAB PO (08:31)
[2022-04-13] MEDS ORDERED: IRON TABLETS325 MG PO (08:31)
[2022-04-13] MEDS ORDERED: ZOCOR 20MG20 MG PO (08:31)
[2022-04-13] MEDS ORDERED: ASPIRIN E.C. 8181 MG PO (08:32)
[2022-04-13] MEDS ORDERED: TYLENOL 500MG500 MG PO (08:32)
[2022-04-13] MEDS ORDERED: ALDACTONE 100M100 MG PO (08:32)
[2022-04-13] MEDS ORDERED: NATURAL MAGNES200 MG PO (08:33)
[2022-04-13] MEDS ORDERED: LASIX 40MG TABL40 MG PO (08:33)
[2022-04-13] MEDS ORDERED: RT ADVAIR 228 DISKUS IH (08:33)
[2022-04-13] MEDS ORDERED: ZOLOFT 50MG50 MG PO (08:33)
[2022-04-13] MEDS ORDERED: MELATONIN ER10 MG PO (08:34)
[2022-04-13] MEDS ORDERED: FOLIC ACID 11 MG/TA1 PO (08:34)
[2022-04-13] MEDS ORDERED: PRIL40 PO (08:34)
--- NOTE | 2022-04-13 10:35 | NUR ---
ASSESSMENT DONE ORDER. PATIENT ALERT X 4 . PATIENT WILL BE GOING HOME TODAY. ABLE TO TAKE MEDICATION ORDER AND WITH NO ISSUE WITH SW ALLOWING. PATIENT HAS NO EDEMA ON LOWER EXTREMITIES BUT ON STOMACH AREA. HAS A IV ON RIGHT ARM WITH NO ISSUE FLOWING GOOD. PATIENT IS 1 PERSON ASSISTANCE. ON 1 LITER OF OXYGEN WITH O2 SAT AROUND 92-94%
[2022-04-13 11:05] VITALS: BP 112/34; PULSE 68; TEMP 98.1
--- NOTE | 2022-04-13 12:33 | NUR ---
Coin Machine Service Repairer attended clinical rounds with the team and patient is ready for discharge to [facility] today. SW met with patient and presented IM form. Patient verbalized understanding and provided signature. SW placed form in chart and patient declined copy. Transport time set for 1300. ANY faxed clinical updates, discharge orders, and negative covid results to Manju at [facility]. ANY provided transport time to patient's nephew, Mello and he is in agreement. Discharge Plan: [facility]
--- NOTE | 2022-04-13 13:09 | NUR ---
PATIENT DISCHARGE BACK TO [facility] BUT TO [facility]/. PATIENT IV WAS DISCONTINUE WITH NO ISSSUE. EXPLAIN ABOUT OXGYEN LELVEL AND O2 LEVEL. PATIENT UNDRESTOOD. ROMAINE CLAY DRY PRESS HELPER AT [facility] PICK PATIENT UP AT 105PM
== END 2022-04-13 13:07 | DRG 291 ==
LOC: COL.ER 03:36 → MEDICAL 05:24
PROVIDERS: Emergency Medicine; Physician Assistant; ADMIT Internal Medicine
DX: I11.0 Hypertensive heart disease with heart failure (principal); J96.01 Acute respiratory failure with hypoxia; I50.33 Acute on chronic diastolic (congestive) heart failure; J91.8 Pleural effusion in other conditions classified elsewhere; E87.3 Alkalosis; Z66 Do not resuscitate; D50.9 Iron deficiency anemia, unspecified; J44.9 Chronic obstructive pulmonary disease, unspecified; I48.91 Unspecified atrial fibrillation; E87.5 Hyperkalemia; K74.60 Unspecified cirrhosis of liver; G47.00 Insomnia, unspecified; G62.9 Polyneuropathy, unspecified; E78.5 Hyperlipidemia, unspecified; F32.A Depression, unspecified; Z20.822 Contact with and (suspected) exposure to COVID-19; I27.20 Pulmonary hypertension, unspecified; F10.20 Alcohol dependence, uncomplicated; Z90.710 Acquired absence of both cervix and uterus; Z90.49 Acquired absence of other specified parts of digestive tract; Z95.0 Presence of cardiac pacemaker; Z79.82 Long term (current) use of aspirin; Z87.891 Personal history of nicotine dependence; Z87.19 Personal history of other diseases of the digestive system
CPT/HCPCS: J1650; J1940; J2930; J3475

== ENCOUNTER 2022-09-22 21:49 | Observation (INO) | payer MEDICARE, OTHER ==
[~2022-09-22] VITALS: Ht 154.9 cm; Wt 49.6 kg
[~2022-09-22 21:49] MED LIST changes: +ALDACTONE 100M100 MG PO; +MAG OX 250 PO; +ROXICODONE 55 MG/TAB PO; +SENEXON-S 50-81 EACH PO; +TYLENOL 500MG500 MG PO
[2022-09-22 22:17] LABS: BASO # 0.1 K/mm3 (0.0-0.2); BASO % 0.5 % (0.0-2.0); EOS # 0.1 K/mm3 (0.0-0.7); EOS % 0.8 % (0.0-4.0); GRAN # 9.5 K/mm3 (1.4-6.5); GRAN % 71.3 % (42.2-75.2); HEMATOCRIT 38.8 % (37.0-47.0); HEMOGLOBIN 12.3 g/dl (12.5-16.0); LYMPH # 2.6 K/mm3 (1.2-3.4); LYMPH % 19.4 % (20.0-51.0); MEAN CELL VOLUME 89 fl (80.0-100.0); MEAN CORPUSCULAR HEMOGLOBIN 28 pg (27-31); MEAN CORPUSCULAR HGB CONC 32 g/dl (33.0-37.0); MEAN PLATELET VOLUME 9.3 fl (7.4-10.4); MONO % 7.7 % (1.7-9.3); PLATELET COUNT 293 K/mm3 (130-400); RED BLOOD COUNT 4.38 M/mm3 (4.10-5.30); REDCELL DISTRIBUTION WIDTH-CV 14.9 % (11.5-14.5)
[2022-09-22 22:39] LABS: ALANINE AMINOTRANSFERASE 13 U/L (0-55); ALBUMIN 3.8 gm/dL (3.4-4.8); ALKALINE PHOSPHATASE 113 U/L (40-150); ANION GAP 13 mmol/L (7-16); AST,SGOT 21 U/L (5-34); BILIRUBIN,TOTAL 0.4 mg/dL (0.2-1.2); BLOOD UREA NITROGEN 28 mg/dL (10-20); CALCIUM 9.7 mg/dL (8.4-10.2); CARBON DIOXIDE 22 mmol/L (23-31); CHLORIDE 106 mmol/L (98-107); CREATININE, serum 0.92 mg/dL (0.57-1.11); GLUCOSE 86 mg/dL (70-99); POTASSIUM 4.2 mmol/L (3.5-4.5); SODIUM 141 mmol/L (136-145); TOTAL PROTEIN 6.9 gm/dL (6.2-8.1)
[2022-09-22 22:55] LABS: ALCOHOL(ethanol),MEDICAL < 10 mg/dL (0-10)
[2022-09-23] VITALS (549 sets, daily range): BP systolic 116–212; BP diastolic 41–79; PULSE 59–69; TEMP 97.7–99.3; O2SAT 90–99
--- NOTE | 2022-09-23 01:45 | NUR ---
PT ARRIVED FROM ER VIA STRETCHER. MOVED TO ICU BED AND CONNECTED TO MONITORING. PT REPORTS PAIN 9/10 TO RIGHT RIBS/FLANK, GUARDING WITH MOVEMENT. NO CURRENT ORDERS BUT WILL NOTIFY PROVIDER. PT ASSISTED TO USE BEDPAN AT THIS TIME, CLEAR YELLOW URINE. PT ON O2 AT 2L VIA NC. HAS CALL LIGHT IN HAND, REQUESTS LIGHTS OFF TO TRY TO SLEEP. WILL CONTINUE TO MONITOR.
[2022-09-23] MEDS ORDERED: ALDACTONE50 MG PO (05:13)
[2022-09-23] MEDS ORDERED: TYLENOL 325MG325 MG PO (05:14)
[2022-09-23] MEDS ORDERED: TYLENOL SU650 MG/SUP RC (05:14)
[2022-09-23] MEDS ORDERED: NEURONTIN100 MG/CAP PO (05:16)
[2022-09-23] MEDS ORDERED: MYLANTA MAXIMU355 M1 PO (05:17)
[2022-09-23] MEDS ORDERED: IMODIUM 2MG CAPS2 MG PO (05:17)
[2022-09-23 06:45] LABS: BASO # 0.1 K/mm3 (0.0-0.2); BASO % 0.6 % (0.0-2.0); EOS # 0.1 K/mm3 (0.0-0.7); EOS % 0.4 % (0.0-4.0); GRAN # 7.9 K/mm3 (1.4-6.5); GRAN % 65.5 % (42.2-75.2); HEMOGLOBIN 11.5 g/dl (12.5-16.0); LYMPH % 24.7 % (20.0-51.0); MEAN CELL VOLUME 88 fl (80.0-100.0); MEAN CORPUSCULAR HEMOGLOBIN 28 pg (27-31); MEAN CORPUSCULAR HGB CONC 32 g/dl (33.0-37.0); MEAN PLATELET VOLUME 9.9 fl (7.4-10.4); MONO % 8.5 % (1.7-9.3); PLATELET COUNT 319 K/mm3 (130-400); RED BLOOD COUNT 4.16 M/mm3 (4.10-5.30)
[2022-09-23 06:51] LABS: HEMATOCRIT 36.4 % (37.0-47.0)
[2022-09-23 06:58] LABS: CALCIUM 9.1 mg/dL (8.4-10.2); CREATININE, serum 0.86 mg/dL (0.57-1.11); POTASSIUM 4.3 mmol/L (3.5-4.5)
[2022-09-23 09:36] LABS: COLLECTION METHOD CLEAN CATCH
[2022-09-23 09:44] LABS: SQUAMOUS EPITHELIAL 0-2 /hpf (0-10); URINE BACTERIA None Seen /hpf (NONE SEEN); URINE RBC 0-2 /hpf (0-2)
[2022-09-23 09:45] LABS: PH 5.5 (5.0-8.5); URINE APPEARANCE Clear (CLEAR/HAZY); URINE BLOOD Negative (NEGATIVE); URINE COLOR Yellow (YELLOW); URINE GLUCOSE Negative (NEGATIVE); URINE KETONE 1+ (NEGATIVE); URINE NITRATE Negative (NEGATIVE); URINE PROTEIN(semi-quant) Negative (NEGATIVE); URINE UROBILINOGEN 0.2 E.U/dL (0.2-1.0)
--- NOTE | 2022-09-23 10:48 | NUR ---
SW met with patient to complete intake. Patient currently resides at [facility] in [place]. She reports that she has to have assistance from the long term staff with ADL's and utilizes a walker to assist with mobility. PCP is and the prison manages her medications for her. Patient does have a DPOA-HC established listing her nephew Mello ([phone]) as her agent. Patients clinical updates faxed to Manju at [facility].
--- NOTE | 2022-09-23 13:00 | NUR ---
Patient arrived to the unit by bed, alert and oriented x 4, telemetry in place, 1 LO2 NC. Assessment completed, no further needs at this time. Call light within reach.
--- NOTE | 2022-09-23 19:01 | NUR ---
1220 Report was given to Lucía on medical floor. 1230 Pt moved to 357
--- NOTE | 2022-09-23 21:10 | NUR ---
Pt assessment completed at this time. Pt is alert and oriented, answers questions appropriately. Pt complains of rib pain rating it a 9/10 that is sharp and does not radiate. Pts systolic pressure at 1999 was in the 200s. When pt was reassessed at this time pt systolic was 157. Pt given medications per EMAR. Call light within reach.
[2022-09-24 03:21] VITALS: BP 131/36; PULSE 61; TEMP 98.8
[2022-09-24 06:29] LABS: BASO % 0.3 % (0.0-2.0); EOS # 0.1 K/mm3 (0.0-0.7); EOS % 0.5 % (0.0-4.0); GRAN # 6.8 K/mm3 (1.4-6.5); GRAN % 67.3 % (42.2-75.2); HEMOGLOBIN 10.6 g/dl (12.5-16.0); LYMPH # 2.2 K/mm3 (1.2-3.4); LYMPH % 21.4 % (20.0-51.0); MEAN CELL VOLUME 91 fl (80.0-100.0); MEAN CORPUSCULAR HEMOGLOBIN 28 pg (27-31); MEAN CORPUSCULAR HGB CONC 31 g/dl (33.0-37.0); MONO % 10.3 % (1.7-9.3); PLATELET COUNT 271 K/mm3 (130-400); RED BLOOD COUNT 3.82 M/mm3 (4.10-5.30); REDCELL DISTRIBUTION WIDTH-CV 15.2 % (11.5-14.5)
[2022-09-24 06:35] LABS: HEMATOCRIT 34.6 % (37.0-47.0)
[2022-09-24 06:50] LABS: CALCIUM 9.3 mg/dL (8.4-10.2); CREATININE, serum 0.95 mg/dL (0.57-1.11); POTASSIUM 4.2 mmol/L (3.5-4.5)
[2022-09-24 07:33] VITALS: BP 139/49; PULSE 60; TEMP 98.1
[2022-09-24] MEDS ORDERED: TYLENOL 500MG500 MG PO (09:48)
[2022-09-24] MEDS ORDERED: NATURE'S BLEND100 M2 PO (09:48)
[2022-09-24] MEDS ORDERED: DUO-KAPS1 CAP PO (09:49)
[2022-09-24] MEDS ORDERED: ROXICODONE 55 MG/TAB PO ×2 (09:50→09:54)
--- NOTE | 2022-09-24 12:30 | NUR ---
Attempted to call report to flo Herring with callback number given. IV and telemetry removed prior to discharge, assisted easily to wheelchair.
--- NOTE | 2022-09-24 13:08 | NUR ---
Subassembler attended clinical rounds with the team and patient is ready for discharge today. Hospitalist, therapy team, and [facility] all recommend SNF placement for patient. ANY met with patient to discuss this and she is not happy about the recommendation but will agree to go. ANY contacted patient's DPOA-HC, Mello to review discharge plan and to review that patient will be private pay. Mello is in agreement to both and stated patient should not return to [place] at this time as she will just keep falling. ANY faxed discharge orders to Manju at [facility]. Discharge Plan: [facility] SNF private pay
--- NOTE | 2022-09-24 13:14 | NUR ---
Report given to nurse at [facility]. All questions answered
== END 2022-09-24 12:45 ==
LOC: COL.ER 21:49 → ICU 23:41 → MEDICAL 09-23 13:10
PROVIDERS: Emergency Medicine; Nurse Practitioner Family; ADMIT Hospitalist
DX: S22.41XA Multiple fractures of ribs, right side, initial encounter for closed fracture (principal); S42.012A Anterior displaced fracture of sternal end of left clavicle, initial encounter for closed fracture; G89.11 Acute pain due to trauma; E44.1 Mild protein-calorie malnutrition; J96.01 Acute respiratory failure with hypoxia; J44.9 Chronic obstructive pulmonary disease, unspecified; Z66 Do not resuscitate; I13.0 Hypertensive heart and chronic kidney disease with heart failure and stage 1 through stage 4 chronic kidney disease, or unspecified chronic kidney disease; Z20.822 Contact with and (suspected) exposure to COVID-19; N18.32 Chronic kidney disease, stage 3b; I50.89 Other heart failure; I25.10 Atherosclerotic heart disease of native coronary artery without angina pectoris; I49.5 Sick sinus syndrome; I48.0 Paroxysmal atrial fibrillation; G30.9 Alzheimer's disease, unspecified; F02.80 Dementia in other diseases classified elsewhere, unspecified severity, without behavioral disturbance, psychotic disturbance, mood disturbance, and anxiety; F32.A Depression, unspecified; D50.9 Iron deficiency anemia, unspecified; K21.9 Gastro-esophageal reflux disease without esophagitis; K70.30 Alcoholic cirrhosis of liver without ascites; E78.5 Hyperlipidemia, unspecified; Z87.891 Personal history of nicotine dependence; W18.39XA Other fall on same level, initial encounter; Y93.89 Activity, other specified; Z95.0 Presence of cardiac pacemaker; Y92.099 Unspecified place in other non-institutional residence as the place of occurrence of the external cause; Z68.21 Body mass index [BMI] 21.0-21.9, adult; Z79.899 Other long term (current) drug therapy; Z79.82 Long term (current) use of aspirin
CPT/HCPCS: A9284; G0378; J0360; J2270; J2405; J7030

== ENCOUNTER → 2022-09-26 | Outpatient (CLI) | payer MEDICARE, OTHER ==
[~2022-09-26] MED LIST changes: +ALDACTONE50 MG PO; +IMODIUM 2MG CAPS2 MG PO; +MYLANTA MAXIMU355 M1 PO; +NATURE'S BLEND100 M2 PO; +NEURONTIN100 MG/CAP PO; +TYLENOL 325MG325 MG PO; +TYLENOL SU650 MG/SUP RC
[2022-09-26 20:22] LABS: ALBUMIN 3.5 gm/dL (3.4-4.8); BASO % 0.3 % (0.0-2.0); BILIRUBIN,TOTAL 0.3 mg/dL (0.2-1.2); CALCIUM 9.8 mg/dL (8.4-10.2); CREATININE, serum 0.99 mg/dL (0.57-1.11); EOS # 0.1 K/mm3 (0.0-0.7); EOS % 0.9 % (0.0-4.0); GRAN # 7.8 K/mm3 (1.4-6.5); GRAN % 73.9 % (42.2-75.2); HEMATOCRIT 36.2 % (37.0-47.0); HEMOGLOBIN 11.1 g/dl (12.5-16.0); LYMPH # 1.6 K/mm3 (1.2-3.4); LYMPH % 15.1 % (20.0-51.0); MEAN CELL VOLUME 91 fl (80.0-100.0); MEAN CORPUSCULAR HEMOGLOBIN 28 pg (27-31); MEAN CORPUSCULAR HGB CONC 31 g/dl (33.0-37.0); MEAN PLATELET VOLUME 10.5 fl (7.4-10.4); MONO % 9.3 % (1.7-9.3); PLATELET COUNT 274 K/mm3 (130-400); POTASSIUM 4.1 mmol/L (3.5-4.5); RED BLOOD COUNT 3.96 M/mm3 (4.10-5.30); REDCELL DISTRIBUTION WIDTH-CV 14.8 % (11.5-14.5); TOTAL PROTEIN 6.9 gm/dL (6.2-8.1)
== END ==
LOC: ZCOL.LAB 19:36
PROVIDERS: Internal Medicine
DX: R41.82 Altered mental status, unspecified (principal)

== ENCOUNTER → 2022-09-27 | Outpatient (REF) | payer MEDICARE, OTHER ==
[2022-09-27 14:46] LABS: COLLECTION METHOD CLEAN CATCH
[2022-09-27 15:04] LABS: PH 5.5 (5.0-8.5); URINE APPEARANCE Clear (CLEAR/HAZY); URINE BLOOD Negative (NEGATIVE); URINE COLOR Yellow (YELLOW); URINE GLUCOSE Negative (NEGATIVE); URINE KETONE Negative (NEGATIVE); URINE NITRATE Negative (NEGATIVE); URINE PROTEIN(semi-quant) 1+ (NEGATIVE); URINE UROBILINOGEN 0.2 E.U/dL (0.2-1.0)
[2022-09-27 15:08] LABS: MUCOUS Present (NOT PRESENT); SQUAMOUS EPITHELIAL 0-2 /hpf (0-10); URINE BACTERIA None Seen /hpf (NONE SEEN); URINE RBC 0-2 /hpf (0-2)
== END ==
LOC: ZCOL.LAB 14:35
PROVIDERS: Internal Medicine
DX: R41.82 Altered mental status, unspecified (principal)